=== PATIENT | male | born 1960 | race Caucasian/White ===

== ENCOUNTER 2018-09-21 16:16 | Inpatient (IN) | payer MEDICARE, MEDICAID ==
--- NOTE | 2018-09-21 17:23 | ED Physician Chart ---
ED Chief Complaint/HPI - Patient Information Date Seen:: 09/21/18 Time Seen:: 17:21 Chief Complaint:: Increased agitation History of Present Illness:: 58 yo male was brought from an assisted living to ER for evaluation of increased agitation and aggressive behavior towards nursing staff. Patient also complained erythema and pain on the medial side of bilateral distal tibial areas. Allergies:: Allergies Allergy/AdvReac Type Severity Reaction Status Date / Time No Known Allergies Allergy Verified 09/21/18 17:02 Vitals:: Vital Signs - 8 hr 09/21/18 16:30 Temp 97.5 F HR 77 RR 16 BP 137/72 O2 Sat % 97 ED Review of Systems - Review of Systems General/Constitutional: No fever Skin: No skin lesions Head: No headache Eyes: No pain ENT: No nasal drainage Neck: No neck pain Cardio Vascular: No chest pain Pulmonary: No SOB GI: No nausea, No vomiting G/U: No dysuria Psychiatric: Prior psych history Neurological: No focal symptoms ED Past Medical History - Past Medical History Past Medical History: HTN, DM, Asthma/COPD, PUD/GERD, Other (diaphragmatic hernia) Social History: Smoker, No Alcohol, No Drug Use Surgical History: None Family Medical History - Family Member Mother History Unknown: Yes ED Physical Exam - Physical Examination General/Constitutional: Awake, Alert Head: Atraumatic Eyes: PERRL, EOMI Skin: No ecchymosis ENMT: Nasal exam nl Neck: No nuchal rigidity Respiratory: No Wheeze/Rhonchi/Rales Cardio Vascular: RRR, No murmur, gallop, rubs, NL S1 S2 GI: No tenderness/rebounding/guarding Extremities: normal strength in all extremities Neuro/Psych: Alert/oriented (to self and place), No focal deficits ED Labs/Radiology/EKG Results - Lab Results Results: Laboratory Last Values WBC 12.0 Th/cmm (4.8-10.8) H 09/21/18 17:38 RBC 4.79 Mil/cmm (4.30-5.70) 09/21/18 17:38 Hgb 13.1 gm/dL (12-16) 09/21/18 17:38 Hct 40.5 % (41.0-60) L 09/21/18 17:38 MCV 84.5 fl (80-99) 09/21/18 17:38 MCH 27.4 pg (26.0-30.0) 09/21/18 17:38 MCHC Differential 32.4 pg (28.0-36.0) 09/21/18 17:38 RDW 16.4 % (11.5-20.0) 09/21/18 17:38 Plt Count 222 Th/cmm (150-400) 09/21/18 17:38 MPV 10.2 fl 09/21/18 17:38 Neutrophils % 70.6 % (40.0-80.0) 09/21/18 17:38 Lymphocytes % 18.6 % (20.0-50.0) L 09/21/18 17:38 Monocytes % 8.5 % (2.0-10.0) 09/21/18 17:38 Eosinophils % 2.3 % (0.0-5.0) 09/21/18 17:38 Basophils % 0.0 % (0.0-2.0) 09/21/18 17:38 PT 9.5 SECONDS (9.5-11.5) 09/21/18 17:38 INR 0.91 (0.5-1.4) 09/21/18 17:38 PTT (Actin FS) 25.6 SECONDS (26.0-38.0) L 09/21/18 17:38 Sodium 137 mEq/L (136-145) 09/21/18 17:38 Potassium 5.2 mEq/L (3.5-5.1) H 09/21/18 17:38 Chloride 105 mEq/L (98-107) 09/21/18 17:38 Carbon Dioxide 27.6 mEq/L (21.0-31.0) 09/21/18 17:38 Anion Gap 9.6 (7.0-16.0) 09/21/18 17:38 BUN 22 mg/dL (7-25) 09/21/18 17:38 Creatinine 0.6 mg/dL (0.7-1.3) L 09/21/18 17:38 Est GFR ( Amer) > 60.0 ml/min (>90) 09/21/18 17:38 Est GFR (Non-Af Amer) > 60.0 ml/min 09/21/18 17:38 BUN/Creatinine Ratio 36.7 09/21/18 17:38 Glucose 80 mg/dL (70-105) 09/21/18 17:38 Calcium 9.2 mg/dL (8.6-10.3) 09/21/18 17:38 Total Bilirubin 0.2 mg/dL (0.3-1.0) L 09/21/18 17:38 AST 34 U/L (13-39) 09/21/18 17:38 ALT 38 U/L (7-52) 09/21/18 17:38 Alkaline Phosphatase 130 U/L (34-104) H 09/21/18 17:38 Troponin I 0.01 ng/mL (0.01-0.05) 09/21/18 17:38 B-Natriuretic Peptide 16.6 pg/mL (5.0-100.0) 09/21/18 17:38 Total Protein 6.9 gm/dL (6.0-8.3) 09/21/18 17:38 Albumin 3.1 gm/dL (4.2-5.5) L 09/21/18 17:38 Globulin 3.8 gm/dL 09/21/18 17:38 Albumin/Globulin Ratio 0.8 (1.0-1.8) L 09/21/18 17:38 TSH 1.31 uIU/ml (0.34-5.60) 09/21/18 17:38 - Radiology Results Results: CXR: no focal consolidation - EKG Interpretations EKG Time:: 17:38 Rate & Rhythm: 66 bpm, SR [place]: -40, 240 Intervals: RBBB, LAFB Comments:: abnormal EKG ED Assessment - Assessment General Assessment: Leukocytosis Cellulitis of bilateral distal medial tibias COPD Psychosis Assessment/Comments:: CMP, CBC, Trop, BNP, TSH, PT/PTT, UA CXR and EKG Rocephin 1g IM Admit to [facility] for further evaluation and management ED Septic Shock - . Is Septic Shock (SBP<90, OR Lactate>4 mmol\L) present?: No - <6hrs of presentation: Vital Signs: Vital Signs - 8 hr 09/21/18 16:30 Temp 97.5 F HR 77 RR 16 BP 137/72 O2 Sat % 97 ED Reassessment (Disposition) - Reassessment Reassessment Condition:: Improved - Patient Disposition Discharge/Transfer:: [facility] w/in this hosp Admitting Medical Physician:: Jim Celeste Admitting Psych Physician:: Radha Can
[2018-09-21 17:54] LABS: % EOSINOPHILS 2.3 % (0.0-5.0); % LYMPHOCYTES 18.6 % (20.0-50.0); % MONOCYTES 8.5 % (2.0-10.0); % NEUTROPHILS 70.6 % (40.0-80.0); EOSINOPHILE ABSOLUTE 0.3 Th/cmm (0.1-0.4); HEMATOCRIT 40.5 % (41.0-60); HEMOGLOBIN 13.1 gm/dL (12-16); LYMPHOCYTE ABSOLUTE 2.2 Th/cmm (1.5-3.0); MEAN CELL VOLUME 84.5 fl (80-99); MEAN CORPUSCULAR HEMOGLOBIN 27.4 pg (26.0-30.0); MEAN CORPUSCULAR HGB CONC 32.4 pg (28.0-36.0); MEAN PLATELET VOLUME 10.2 fl; NEUTROPHILE ABSOLUTE 8.5 Th/cmm (1.8-8.0); PLATELET COUNT 222 Th/cmm (150-400); RED BLOOD COUNT 4.79 Mil/cmm (4.30-5.70); RED CELL DISTRIBUTION WIDTH 16.4 % (11.5-20.0)
[2018-09-21 18:00] LABS: INR 0.91 (0.5-1.4); PROTHROMBIN TIME (TEST) 9.5 SECONDS (9.5-11.5)
[2018-09-21 18:06] LABS: ALB/GLOB RATIO 0.8 (1.0-1.8); ALBUMIN 3.1 gm/dL (4.2-5.5); ALKALINE PHOSPHATASE 130 U/L (34-104); ANION GAP 9.6 (7.0-16.0); BILIRUBIN,TOTAL 0.2 mg/dL (0.3-1.0); BUN - UREA NITROGEN 22 mg/dL (7-25); CALCIUM SERUM 9.2 mg/dL (8.6-10.3); CARBON DIOXIDE 27.6 mEq/L (21.0-31.0); CHLORIDE 105 mEq/L (98-107); CREATININE - SERUM 0.6 mg/dL (0.7-1.3); GFR AFRICAN-AMERICAN > 60.0 ml/min (>90); GFR NON AFRICAN-AMERICAN > 60.0 ml/min; GLUCOSE 80 mg/dL (70-105); POTASSIUM SERUM 5.2 mEq/L (3.5-5.1); SGOT 34 U/L (13-39); SGPT/ALT 38 U/L (7-52); SODIUM SERUM 137 mEq/L (136-145); TOTAL PROTEIN,SERUM 6.9 gm/dL (6.0-8.3)
[2018-09-21 20:44] VITALS: BP 132/81
[2018-09-21 21:07] LABS: CHOLESTEROL 209 mg/dL (<200); HDL -HIGH DENSITY LIPOPROTEIN 41 mg/dL (23-92); TRIGLYCERIDES 177 mg/dL (<150)
[2018-09-21] MEDS ORDERED: Maalox 30 mL Cup PO PRN (21:07)
[2018-09-21] MEDS ORDERED: Magnesium Hydroxide (MOM) 30 mL UDC PO PRN (21:07)
[2018-09-22] MEDS: INSULIN ASPART SLIDING SCALE 100 UNITS/ML UNIT SUBQ SCH ×4 (06:53→20:05)
[2018-09-22 06:56] LABS: URINE SOURCE MIDSTREAM
[2018-09-22 07:01] LABS: URINE BILIRUBIN NEGATIVE (NEGATIVE); URINE BLOOD SMALL (NEGATIVE); URINE GLUCOSE (UA) NEGATIVE (NEGATIVE); URINE KETONE NEGATIVE (NEGATIVE); URINE LEUKOCYTE ESTERASE NEGATIVE (NEGATIVE); URINE MICROSCOPIC INDICATED? YES; URINE NITRATE NEGATIVE (NEGATIVE); URINE PROTEIN 100 mg/dL (NEGATIVE); URINE UROBILINOGEN 0.2 E.U./dL (0.2 - 1.0)
[2018-09-22 07:23] LABS: URINE CLARITY CLEAR (CLEAR); URINE COLOR YELLOW
[2018-09-22 07:44] LABS: URINE BACTERIA FEW /hpf (NONE SEEN); URINE EPITHELIAL CELLS OCCASIONAL /lpf (FEW); URINE RBC 0-2 /hpf (0-5); URINE WBC 0-2 /hpf (0-5)
--- NOTE | 2018-09-22 09:19 | History & Physical ---
ADMIT DATE: 09/22/2018 CHIEF COMPLAINT: Increase in agitation. HISTORY OF PRESENT ILLNESS: This is a 58-year-old male who was admitted from a [facility] facility to the Emergency Room [facility] due to increase in agitation and confusion and from the Emergency Room, the patient was medically cleared and transferred to psychiatric unit. REVIEW OF SYSTEMS: GENERAL: This is a 58-year-old male. No fever. No weakness. HEENT: No headache. No dizziness. EYES: No eye pain, no blurring of vision. NECK: No neck pain or nuchal rigidity. CHEST: No chest pain or palpitation. PULMONARY: No shortness of breath, no coughing. GASTROINTESTINAL: No abdominal pain, no constipation, no diarrhea. MUSCULOSKELETAL: No joint pain. No muscle pain. SOCIAL HISTORY: The patient lives in a [facility] prior to hospitalization. PSYCHIATRIC HISTORY: Includes paranoid schizophrenia. FAMILY HISTORY: Unremarkable. PAST SURGICAL HISTORY: Unremarkable. PAST MEDICAL HISTORY: Includes hypertension, diabetes, gastroesophageal reflux disease, hyperlipidemia, chronic obstructive pulmonary disease. PHYSICAL EXAMINATION: VITAL SIGNS: Temperature 97, heart rate 67, blood pressure 166/71, respirations 19, 98% on room air. GENERAL: This is a 58-year-old male that appears as stated in no acute distress. HEENT: Head is atraumatic, normocephalic. Eyes: Bilateral conjunctivae are clear. Bilateral pupils are equally round and reactive. NECK: Supple. No JVD. CARDIOVASCULAR: S1 and S2, without murmur. PULMONARY: Clear to auscultation. GASTROINTESTINAL: Soft and nontender without guarding. Positive bowel sounds. MUSCULOSKELETAL: No clubbing. No cyanosis noted. ASSESSMENT: 1. Agitation. 2. Hypertension. 3. Diabetes. 4. Gastroesophageal reflux disease. PLAN: We will admit the patient to Psychiatric Unit. We will follow up with a psychiatrist to monitor the patient's condition and behavior. We will do medication reconciliation accordingly, put the patient on p.r.n. for hypertension. Treatment plans were discussed with the patient's nurse. Treatment plans were discussed with Dr. Celeste. JOB# [id number]
--- NOTE | 2018-09-22 09:35 | Diagnostic Imaging Report ---
Portable chest x-ray Time: 1733 History: Shortness of breath Allowing for portable technique the heart size is normal. No focal pulmonary parenchymal processes. No hilar or mediastinal abnormalities. There is evidence of calcifications at the pleural margins bilaterally, asbestos exposure cannot be excluded, clinical correlation recommended as well as comparison with prior studies. Impression: No acute abnormalities.
--- NOTE | 2018-09-22 16:11 | Psychiatric Evaluation ---
DATE OF SERVICE: 09/21/2018 IDENTIFYING DATA: The patient is a 58-year-old male, resident of [facility]. Information obtained by directly interviewing the patient as well as reviewing the admission papers and they are reliable. JUSTIFICATION OF HOSPITALIZATION: The patient is admitted here on a voluntary basis in view of his agitation and psychosis. CHIEF COMPLAINT: "I am okay, leave me alone." HISTORY OF PRESENT ILLNESS: This is the first psychiatric hospitalization to the [facility] for this 58-year-old who has been diagnosed to have schizophrenia, chronic paranoid type since his mid-20s, and the patient is reported to have been getting easily agitated and has been out of control. Chart reviewed and the patient is interviewed. During the interview, review of the chart indicated that the patient has been on medication for blood pressure as well as diabetes, but psychotropic medications are not mentioned in the admission records, the patient is not able to provide much of information. PAST PSYCHIATRIC HISTORY: Details are not known. MEDICAL HISTORY AND PHYSICAL EXAMINATION: Requested to be done by Dr. Celeste. SUBSTANCE ABUSE HISTORY: None. STRENGTH AND ASSETS: The patient is motivated. MENTAL STATUS EXAMINATION: The patient is a 58-year-old, looking his stated age, superficially cooperative. Eye contact is poor. Mood is noted to be irritable. Affect is constricted. Insight and judgment at this time are noted to be very much impaired. Impulse control is noted to be poor. Coping skills are also noted to be very poor. The patient has no insight into his illness. The patient is actively responding to internal stimuli and is pacing most of the time on the unit. The patient is also reported to have been very aggressive and has been constantly arguing and fighting with the staff. The patient has been very disheveled at this time. The patient's behavior is a clear danger to self and others. The patient's short and long-term memory intact. Attention span and concentration are also noted to be poor. DIAGNOSTIC IMPRESSION: AXIS I: chronic paranoid type with acute exacerbation. AXIS II: None. AXIS III: Diabetes mellitus and hypertension. IMMEDIATE TREATMENT PLAN: The patient is going to be observed on inpatient unit, provided with supportive psychotherapy. The patient is going to be closely monitored. Encouraged to verbalize the concerns rather than to act out. Once stabilized, the patient is going to be discharged to [facility] to be followed up on an outpatient basis. [facility]# [id number]
[2018-09-23] MEDS: INSULIN ASPART SLIDING SCALE 100 UNITS/ML UNIT SUBQ SCH ×4 (06:36→20:59)
--- NOTE | 2018-09-23 12:12 | Internal Medicine Prog Note ---
Internal Medicine Subjective - Subjective Patient seen and examined:: chart reviewed Patient is:: awake, confused, other (pt admitted with increased agitation and confusion ) Per staff patient has:: no adverse event Internal Medicine Objective - Results Result Diagrams: 09/21/18 17:38 09/21/18 17:38 Recent Labs: Laboratory Last Values WBC 12.0 Th/cmm (4.8-10.8) H 09/21/18 17:38 RBC 4.79 Mil/cmm (4.30-5.70) 09/21/18 17:38 Hgb 13.1 gm/dL (12-16) 09/21/18 17:38 Hct 40.5 % (41.0-60) L 09/21/18 17:38 MCV 84.5 fl (80-99) 09/21/18 17:38 MCH 27.4 pg (26.0-30.0) 09/21/18 17:38 MCHC Differential 32.4 pg (28.0-36.0) 09/21/18 17:38 RDW 16.4 % (11.5-20.0) 09/21/18 17:38 Plt Count 222 Th/cmm (150-400) 09/21/18 17:38 MPV 10.2 fl 09/21/18 17:38 Neutrophils % 70.6 % (40.0-80.0) 09/21/18 17:38 Lymphocytes % 18.6 % (20.0-50.0) L 09/21/18 17:38 Monocytes % 8.5 % (2.0-10.0) 09/21/18 17:38 Eosinophils % 2.3 % (0.0-5.0) 09/21/18 17:38 Basophils % 0.0 % (0.0-2.0) 09/21/18 17:38 PT 9.5 SECONDS (9.5-11.5) 09/21/18 17:38 INR 0.91 (0.5-1.4) 09/21/18 17:38 PTT (Actin FS) 25.6 SECONDS (26.0-38.0) L 09/21/18 17:38 Sodium 137 mEq/L (136-145) 09/21/18 17:38 Potassium 5.2 mEq/L (3.5-5.1) H 09/21/18 17:38 Chloride 105 mEq/L (98-107) 09/21/18 17:38 Carbon Dioxide 27.6 mEq/L (21.0-31.0) 09/21/18 17:38 Anion Gap 9.6 (7.0-16.0) 09/21/18 17:38 BUN 22 mg/dL (7-25) 09/21/18 17:38 Creatinine 0.6 mg/dL (0.7-1.3) L 09/21/18 17:38 Est GFR ( Amer) > 60.0 ml/min (>90) 09/21/18 17:38 Est GFR (Non-Af Amer) > 60.0 ml/min 09/21/18 17:38 BUN/Creatinine Ratio 36.7 09/21/18 17:38 Glucose 80 mg/dL (70-105) 09/21/18 17:38 POC Glucose 98 MG/DL (70 - 105) 09/23/18 11:45 Calcium 9.2 mg/dL (8.6-10.3) 09/21/18 17:38 Total Bilirubin 0.2 mg/dL (0.3-1.0) L 09/21/18 17:38 AST 34 U/L (13-39) 09/21/18 17:38 ALT 38 U/L (7-52) 09/21/18 17:38 Alkaline Phosphatase 130 U/L (34-104) H 09/21/18 17:38 Troponin I 0.01 ng/mL (0.01-0.05) 09/21/18 17:38 B-Natriuretic Peptide 16.6 pg/mL (5.0-100.0) 09/21/18 17:38 Total Protein 6.9 gm/dL (6.0-8.3) 09/21/18 17:38 Albumin 3.1 gm/dL (4.2-5.5) L 09/21/18 17:38 Globulin 3.8 gm/dL 09/21/18 17:38 Albumin/Globulin Ratio 0.8 (1.0-1.8) L 09/21/18 17:38 Triglycerides 177 mg/dL (<150) H 09/21/18 18:45 Cholesterol 209 mg/dL (<200) H 09/21/18 18:45 LDL Cholesterol Direct 159 mg/dL (75-193) 09/21/18 18:45 HDL Cholesterol 41 mg/dL (23-92) 09/21/18 18:45 TSH 1.31 uIU/ml (0.34-5.60) 09/21/18 17:38 Urine Source MIDSTREAM 09/22/18 06:20 Urine Color YELLOW 09/22/18 06:20 Urine Clarity CLEAR (CLEAR) 09/22/18 06:20 Urine pH 6.0 (4.6 - 8.0) 09/22/18 06:20 Ur Specific [place] 1.020 (1.005-1.030) 09/22/18 06:20 Urine Protein 100 mg/dL (NEGATIVE) H 09/22/18 06:20 Urine Glucose (UA) NEGATIVE mg/dL (NEGATIVE) 09/22/18 06:20 Urine Ketones NEGATIVE mg/dL (NEGATIVE) 09/22/18 06:20 Urine Blood SMALL (NEGATIVE) H 09/22/18 06:20 Urine Nitrate NEGATIVE (NEGATIVE) 09/22/18 06:20 Urine Bilirubin NEGATIVE (NEGATIVE) 09/22/18 06:20 Urine Urobilinogen 0.2 E.U./dL (0.2 - 1.0) 09/22/18 06:20 Ur Leukocyte Esterase NEGATIVE (NEGATIVE) 09/22/18 06:20 Urine RBC 0-2 /hpf (0-5) H 09/22/18 06:20 Urine WBC 0-2 /hpf (0-5) 09/22/18 06:20 Ur Epithelial Cells OCCASIONAL /lpf (FEW) 09/22/18 06:20 Urine Bacteria FEW /hpf (NONE SEEN) 09/22/18 06:20 Urine Mucus FEW /lpf (FEW) 09/22/18 06:20 - Physical Exam Vitals and I&O: Vital Signs Temp 98 F 09/23/18 06:43 Pulse 67 09/23/18 09:15 Resp 20 09/23/18 06:43 BP 157/90 09/23/18 09:15 Pulse Ox 97 09/23/18 06:43 Intake & Output 09/22/18 09/23/18 09/23/18 18:59 06:59 18:59 Intake Total 1000 480 Balance 1000 480 Intake: Oral 1000 480 Other: # Voids 4 1 # Bowel Movements 1 Active Medications: Current Medications Acetaminophen (Tylenol) 650 mg PO Q4HR PRN PRN Reason: Mild Pain / Temp above 100 Stop: 11/20/18 21:06 Al Hydrox/Mg Hydrox/Simethicone (Maalox) 30 ml PO Q4HR PRN PRN Reason: GI DISTRESS Stop: 11/20/18 21:06 Amlodipine Besylate (Norvasc) 5 mg PO DAILY [facility] Stop: 11/21/18 08:59 Last Admin: 09/23/18 09:15 Dose: 5 mg Haloperidol (Haldol) 2 mg PO BID PRN; Protocol PRN Reason: Agitation Stop: 11/21/18 09:48 Last Admin: 09/22/18 17:10 Dose: 2 mg Insulin Aspart (Novolog Insulin Sliding Scale) 0 units SUBQ ACHS [facility]; Protocol Stop: 11/21/18 07:29 Last Admin: 09/23/18 11:49 Dose: Not Given Lorazepam (Ativan) 0.5 mg PO Q4HR PRN; Protocol PRN Reason: Agitation Stop: 10/21/18 21:06 Last Admin: 09/23/18 02:53 Dose: 0.5 mg Magnesium Hydroxide (Milk Of Magnesia) 30 ml PO HS PRN PRN Reason: Constipation Metformin HCl (Glucophage) 850 mg PO BIDWM [facility] Stop: 11/21/18 07:59 Last Admin: 09/23/18 09:15 Dose: 850 mg Olanzapine (Zyprexa) 5 mg PO DAILY [facility]; Protocol Stop: 11/22/18 08:59 Last Admin: 09/23/18 09:15 Dose: 5 mg Sucralfate (Carafate) 1 gm PO QID [facility] Stop: 11/20/18 20:59 Last Admin: 09/23/18 09:15 Dose: 1 gm Zolpidem Tartrate (Ambien) 5 mg PO HS PRN PRN Reason: Insomnia Stop: 11/20/18 21:06 Last Admin: 09/21/18 21:51 Dose: 5 mg General: demented HEENT: NC/AT Neck: Supple Lungs: CTAB Cardiovascular: RRR, Normal S1, Normal S2 Abdomen: soft Extremities: clear Neurological: alert Internal Medicine Assmt/Plan - Assessment Assessment: agitation htn dm gerd - Plan Plan: as per psych will monitor
--- NOTE | 2018-09-23 22:55 | Progress Notes ---
DATE: 09/23/2018 PSYCHIATRIC PROGRESS NOTE SUBJECTIVE: Staff was spoken to. The patient is interviewed. Mood is noted to be irritable. Affect is constricted. The patient is not making any sense. The patient has been pacing most of the time on the unit. Insight and judgment at this time are noted to be still impaired. Impulse control is noted to be poor. The patient is getting the Haldol on a p.r.n. basis and the patient has been on the olanzapine once a day. Plan to increase the dose of the medications to twice daily in view of his psychosis. PLAN: Continue the patient with the supportive therapy and followup. JOB# [id number]
[2018-09-24] MEDS: INSULIN ASPART SLIDING SCALE 100 UNITS/ML UNIT SUBQ SCH ×4 (06:40→20:16)
--- NOTE | 2018-09-24 12:53 | Internal Medicine Prog Note ---
Internal Medicine Subjective - Subjective Patient is:: awake, confused, other (pt is irritable ,talking but making no sense ) Per staff patient has:: no adverse event Internal Medicine Objective - Results Result Diagrams: 09/21/18 17:38 09/21/18 17:38 Recent Labs: Laboratory Last Values WBC 12.0 Th/cmm (4.8-10.8) H 09/21/18 17:38 RBC 4.79 Mil/cmm (4.30-5.70) 09/21/18 17:38 Hgb 13.1 gm/dL (12-16) 09/21/18 17:38 Hct 40.5 % (41.0-60) L 09/21/18 17:38 MCV 84.5 fl (80-99) 09/21/18 17:38 MCH 27.4 pg (26.0-30.0) 09/21/18 17:38 MCHC Differential 32.4 pg (28.0-36.0) 09/21/18 17:38 RDW 16.4 % (11.5-20.0) 09/21/18 17:38 Plt Count 222 Th/cmm (150-400) 09/21/18 17:38 MPV 10.2 fl 09/21/18 17:38 Neutrophils % 70.6 % (40.0-80.0) 09/21/18 17:38 Lymphocytes % 18.6 % (20.0-50.0) L 09/21/18 17:38 Monocytes % 8.5 % (2.0-10.0) 09/21/18 17:38 Eosinophils % 2.3 % (0.0-5.0) 09/21/18 17:38 Basophils % 0.0 % (0.0-2.0) 09/21/18 17:38 PT 9.5 SECONDS (9.5-11.5) 09/21/18 17:38 INR 0.91 (0.5-1.4) 09/21/18 17:38 PTT (Actin FS) 25.6 SECONDS (26.0-38.0) L 09/21/18 17:38 Sodium 137 mEq/L (136-145) 09/21/18 17:38 Potassium 5.2 mEq/L (3.5-5.1) H 09/21/18 17:38 Chloride 105 mEq/L (98-107) 09/21/18 17:38 Carbon Dioxide 27.6 mEq/L (21.0-31.0) 09/21/18 17:38 Anion Gap 9.6 (7.0-16.0) 09/21/18 17:38 BUN 22 mg/dL (7-25) 09/21/18 17:38 Creatinine 0.6 mg/dL (0.7-1.3) L 09/21/18 17:38 Est GFR ( Amer) > 60.0 ml/min (>90) 09/21/18 17:38 Est GFR (Non-Af Amer) > 60.0 ml/min 09/21/18 17:38 BUN/Creatinine Ratio 36.7 09/21/18 17:38 Glucose 80 mg/dL (70-105) 09/21/18 17:38 POC Glucose 90 MG/DL (70 - 105) 09/24/18 11:20 Calcium 9.2 mg/dL (8.6-10.3) 09/21/18 17:38 Total Bilirubin 0.2 mg/dL (0.3-1.0) L 09/21/18 17:38 AST 34 U/L (13-39) 09/21/18 17:38 ALT 38 U/L (7-52) 09/21/18 17:38 Alkaline Phosphatase 130 U/L (34-104) H 09/21/18 17:38 Troponin I 0.01 ng/mL (0.01-0.05) 09/21/18 17:38 B-Natriuretic Peptide 16.6 pg/mL (5.0-100.0) 09/21/18 17:38 Total Protein 6.9 gm/dL (6.0-8.3) 09/21/18 17:38 Albumin 3.1 gm/dL (4.2-5.5) L 09/21/18 17:38 Globulin 3.8 gm/dL 09/21/18 17:38 Albumin/Globulin Ratio 0.8 (1.0-1.8) L 09/21/18 17:38 Triglycerides 177 mg/dL (<150) H 09/21/18 18:45 Cholesterol 209 mg/dL (<200) H 09/21/18 18:45 LDL Cholesterol Direct 159 mg/dL (75-193) 09/21/18 18:45 HDL Cholesterol 41 mg/dL (23-92) 09/21/18 18:45 TSH 1.31 uIU/ml (0.34-5.60) 09/21/18 17:38 Urine Source MIDSTREAM 09/22/18 06:20 Urine Color YELLOW 09/22/18 06:20 Urine Clarity CLEAR (CLEAR) 09/22/18 06:20 Urine pH 6.0 (4.6 - 8.0) 09/22/18 06:20 Ur Specific [place] 1.020 (1.005-1.030) 09/22/18 06:20 Urine Protein 100 mg/dL (NEGATIVE) H 09/22/18 06:20 Urine Glucose (UA) NEGATIVE mg/dL (NEGATIVE) 09/22/18 06:20 Urine Ketones NEGATIVE mg/dL (NEGATIVE) 09/22/18 06:20 Urine Blood SMALL (NEGATIVE) H 09/22/18 06:20 Urine Nitrate NEGATIVE (NEGATIVE) 09/22/18 06:20 Urine Bilirubin NEGATIVE (NEGATIVE) 09/22/18 06:20 Urine Urobilinogen 0.2 E.U./dL (0.2 - 1.0) 09/22/18 06:20 Ur Leukocyte Esterase NEGATIVE (NEGATIVE) 09/22/18 06:20 Urine RBC 0-2 /hpf (0-5) H 09/22/18 06:20 Urine WBC 0-2 /hpf (0-5) 09/22/18 06:20 Ur Epithelial Cells OCCASIONAL /lpf (FEW) 09/22/18 06:20 Urine Bacteria FEW /hpf (NONE SEEN) 09/22/18 06:20 Urine Mucus FEW /lpf (FEW) 09/22/18 06:20 - Physical Exam Vitals and I&O: Vital Signs Temp 97.4 F 09/24/18 06:17 Pulse 64 09/24/18 09:07 Resp 18 09/24/18 06:17 BP 132/84 09/24/18 09:07 Pulse Ox 95 09/24/18 06:17 Intake & Output 09/23/18 09/24/18 09/24/18 18:59 06:59 18:59 Intake Total 1000 120 Balance 1000 120 Intake: Oral 1000 120 Other: # Voids 4 3 # Bowel Movements 1 0 Stool Characteristics Soft Active Medications: Current Medications Acetaminophen (Tylenol) 650 mg PO Q4HR PRN PRN Reason: Mild Pain / Temp above 100 Stop: 11/20/18 21:06 Al Hydrox/Mg Hydrox/Simethicone (Maalox) 30 ml PO Q4HR PRN PRN Reason: GI DISTRESS Stop: 11/20/18 21:06 Amlodipine Besylate (Norvasc) 5 mg PO DAILY [facility] Stop: 11/21/18 08:59 Last Admin: 09/24/18 09:07 Dose: 5 mg Haloperidol (Haldol) 2 mg PO BID PRN; Protocol PRN Reason: Agitation Stop: 11/21/18 09:48 Last Admin: 09/22/18 17:10 Dose: 2 mg Insulin Aspart (Novolog Insulin Sliding Scale) 0 units SUBQ ACHS [facility]; Protocol Stop: 11/21/18 07:29 Last Admin: 09/24/18 11:22 Dose: Not Given Lorazepam (Ativan) 0.5 mg PO Q4HR PRN; Protocol PRN Reason: Agitation Stop: 10/21/18 21:06 Last Admin: 09/23/18 02:53 Dose: 0.5 mg Magnesium Hydroxide (Milk Of Magnesia) 30 ml PO HS PRN PRN Reason: Constipation Metformin HCl (Glucophage) 850 mg PO BIDWM [facility] Stop: 11/21/18 07:59 Last Admin: 09/24/18 09:17 Dose: 850 mg Olanzapine (Zyprexa) 5 mg PO BID [facility]; Protocol Stop: 11/22/18 16:59 Last Admin: 09/24/18 09:07 Dose: 5 mg Sucralfate (Carafate) 1 gm PO QID [facility] Stop: 11/20/18 20:59 Last Admin: 09/24/18 09:07 Dose: 1 gm Zolpidem Tartrate (Ambien) 5 mg PO HS PRN PRN Reason: Insomnia Stop: 11/20/18 21:06 Last Admin: 09/23/18 21:01 Dose: 5 mg General: demented HEENT: NC/AT Neck: Supple Lungs: CTAB Cardiovascular: RRR, Normal S1, Normal S2 Abdomen: soft Extremities: clear Neurological: alert Internal Medicine Assmt/Plan - Assessment Assessment: agitation htn dm gerd - Plan Plan: as per psych will monitor
--- NOTE | 2018-09-24 16:30 | Consultation ---
DATE OF CONSULTATION: 09/24/2018 REFERRING PHYSICIAN: Radha Can MD TYPE OF CONSULTATION: Psychology. HISTORY OF PRESENT ILLNESS: The patient is a 58-year-old male. The patient is a resident of [facility]. The patient is being admitted due to acute agitation and psychosis. The following is by record review and by the patient's self-report. Upon interview, the patient stated that he wanted to be left alone and did not want to answer any questions. The patient has a history of schizophrenia, chronic paranoid type since his mid 20s. The patient denied any suicidal ideation, plan or intention at the time of the clinical interview. The staff at the patient's facility reports the patient had become easily agitated and unable to be contained, therefore transfer to the Geropsychiatric Unit here at [facility] was recommended. PAST MEDICAL HISTORY: Please see history and physical by Dr. Celeste. PAST PSYCHIATRIC HISTORY: According to record review, the patient has a history of schizophrenia, chronic paranoid type. Details are unknown regarding previous hospitalizations or for psychiatry or psychology service at his facility. SUBSTANCE ABUSE HISTORY: The patient denied any history. PSYCHOSOCIAL HISTORY: The patient did not answer questions about occupational or educational history or church affiliation. He did not answer questions about history of physical or sexual abuse or any current legal problems. The patient declined to answer questions about family members or others involved in his care. MENTAL STATUS EXAMINATION: The patient appears to be his stated age. The patient's attitude is superficially cooperative. Eye contact is poor. Speech is pressured. Mood is irritable. Affect is constricted. Thought process shows that the patient is possibly responding actively to internal stimuli. The patient acknowledged that he does experience auditory hallucinations. The patient did not answer questions about whether these were persecutory or command type. He denied suicidal ideation. The patient's behavior has been aggressive with the staff as well as argumentative and difficult to redirect. The patient's behavior appears to be a danger to self and others. Impulse control is inadequate. Concentration is poor. The patient did not participate in the memory assessment. Sensorium is alert and oriented to self and place only. The patient did not participate in the interpretation of proverbs. Insight is impaired. Judgment is impaired. DIAGNOSTIC IMPRESSION: AXIS I: History of schizophrenia, chronic paranoid type, in acute exacerbation. AXIS II: Deferred. AXIS III: Please see H and P by Dr. Celeste. TREATMENT PLAN: The patient has been seen by Dr. Can for psychiatric evaluation and further management of the patient's psychotropic medications. We will provide supportive psychotherapy to include reality orientation, differentiation and integration. We will provide de-escalation and limit setting. We will provide anger management. We will encourage the patient to demonstrate emotional and self-regulation prior to his discharge. We will encourage the patient to verbalize his concerns versus acting out. We will provide daily opportunities for the patient to contract for safety, including no self-harm and no harm to others. We will provide motivational enhancement for the patient to become compliant and stay compliant with all aspects of his care and treatment. We will provide coping strategies for phase of life issues as well as for chronic severe mental illness. Thank you, Dr. Can, for this consult and the opportunity to participate in this patient's care. JOB# [id number] MTDD
--- NOTE | 2018-09-25 00:47 | Progress Notes ---
DATE: 09/24/2018 PSYCHIATRIC PROGRESS NOTE SUBJECTIVE: Staff was spoken to. The patient is interviewed. Mood is noted to be anxious. The patient has been pacing most of the time in the unit. Insight and judgment are noted to be still impaired. Impulse control is noted to be limited. The patient has been having difficult time to cope with the stress. The patient is laughing and giggling at this time. ASSESSMENT: The patient is still psychotic. PLAN: To continue the patient with supportive therapy and follow up. [facility]# [id number]
[2018-09-25] MEDS: INSULIN ASPART SLIDING SCALE 100 UNITS/ML UNIT SUBQ SCH ×4 (07:03→20:22)
--- NOTE | 2018-09-25 17:17 | Internal Medicine Prog Note ---
Internal Medicine Subjective - Subjective Service Date: 09/25/18 Patient is:: awake, confused, other (pt is irritable ,talking but making no sense ) Per staff patient has:: no adverse event Internal Medicine Objective - Results Result Diagrams: 09/21/18 17:38 09/21/18 17:38 Recent Labs: Laboratory Last Values WBC 12.0 Th/cmm (4.8-10.8) H 09/21/18 17:38 RBC 4.79 Mil/cmm (4.30-5.70) 09/21/18 17:38 Hgb 13.1 gm/dL (12-16) 09/21/18 17:38 Hct 40.5 % (41.0-60) L 09/21/18 17:38 MCV 84.5 fl (80-99) 09/21/18 17:38 MCH 27.4 pg (26.0-30.0) 09/21/18 17:38 MCHC Differential 32.4 pg (28.0-36.0) 09/21/18 17:38 RDW 16.4 % (11.5-20.0) 09/21/18 17:38 Plt Count 222 Th/cmm (150-400) 09/21/18 17:38 MPV 10.2 fl 09/21/18 17:38 Neutrophils % 70.6 % (40.0-80.0) 09/21/18 17:38 Lymphocytes % 18.6 % (20.0-50.0) L 09/21/18 17:38 Monocytes % 8.5 % (2.0-10.0) 09/21/18 17:38 Eosinophils % 2.3 % (0.0-5.0) 09/21/18 17:38 Basophils % 0.0 % (0.0-2.0) 09/21/18 17:38 PT 9.5 SECONDS (9.5-11.5) 09/21/18 17:38 INR 0.91 (0.5-1.4) 09/21/18 17:38 PTT (Actin FS) 25.6 SECONDS (26.0-38.0) L 09/21/18 17:38 Sodium 137 mEq/L (136-145) 09/21/18 17:38 Potassium 5.2 mEq/L (3.5-5.1) H 09/21/18 17:38 Chloride 105 mEq/L (98-107) 09/21/18 17:38 Carbon Dioxide 27.6 mEq/L (21.0-31.0) 09/21/18 17:38 Anion Gap 9.6 (7.0-16.0) 09/21/18 17:38 BUN 22 mg/dL (7-25) 09/21/18 17:38 Creatinine 0.6 mg/dL (0.7-1.3) L 09/21/18 17:38 Est GFR ( Amer) > 60.0 ml/min (>90) 09/21/18 17:38 Est GFR (Non-Af Amer) > 60.0 ml/min 09/21/18 17:38 BUN/Creatinine Ratio 36.7 09/21/18 17:38 Glucose 80 mg/dL (70-105) 09/21/18 17:38 POC Glucose 87 MG/DL (70 - 105) 09/25/18 16:18 Calcium 9.2 mg/dL (8.6-10.3) 09/21/18 17:38 Total Bilirubin 0.2 mg/dL (0.3-1.0) L 09/21/18 17:38 AST 34 U/L (13-39) 09/21/18 17:38 ALT 38 U/L (7-52) 09/21/18 17:38 Alkaline Phosphatase 130 U/L (34-104) H 09/21/18 17:38 Troponin I 0.01 ng/mL (0.01-0.05) 09/21/18 17:38 B-Natriuretic Peptide 16.6 pg/mL (5.0-100.0) 09/21/18 17:38 Total Protein 6.9 gm/dL (6.0-8.3) 09/21/18 17:38 Albumin 3.1 gm/dL (4.2-5.5) L 09/21/18 17:38 Globulin 3.8 gm/dL 09/21/18 17:38 Albumin/Globulin Ratio 0.8 (1.0-1.8) L 09/21/18 17:38 Triglycerides 177 mg/dL (<150) H 09/21/18 18:45 Cholesterol 209 mg/dL (<200) H 09/21/18 18:45 LDL Cholesterol Direct 159 mg/dL (75-193) 09/21/18 18:45 HDL Cholesterol 41 mg/dL (23-92) 09/21/18 18:45 TSH 1.31 uIU/ml (0.34-5.60) 09/21/18 17:38 Urine Source MIDSTREAM 09/22/18 06:20 Urine Color YELLOW 09/22/18 06:20 Urine Clarity CLEAR (CLEAR) 09/22/18 06:20 Urine pH 6.0 (4.6 - 8.0) 09/22/18 06:20 Ur Specific [place] 1.020 (1.005-1.030) 09/22/18 06:20 Urine Protein 100 mg/dL (NEGATIVE) H 09/22/18 06:20 Urine Glucose (UA) NEGATIVE mg/dL (NEGATIVE) 09/22/18 06:20 Urine Ketones NEGATIVE mg/dL (NEGATIVE) 09/22/18 06:20 Urine Blood SMALL (NEGATIVE) H 09/22/18 06:20 Urine Nitrate NEGATIVE (NEGATIVE) 09/22/18 06:20 Urine Bilirubin NEGATIVE (NEGATIVE) 09/22/18 06:20 Urine Urobilinogen 0.2 E.U./dL (0.2 - 1.0) 09/22/18 06:20 Ur Leukocyte Esterase NEGATIVE (NEGATIVE) 09/22/18 06:20 Urine RBC 0-2 /hpf (0-5) H 09/22/18 06:20 Urine WBC 0-2 /hpf (0-5) 09/22/18 06:20 Ur Epithelial Cells OCCASIONAL /lpf (FEW) 09/22/18 06:20 Urine Bacteria FEW /hpf (NONE SEEN) 09/22/18 06:20 Urine Mucus FEW /lpf (FEW) 09/22/18 06:20 - Physical Exam Vitals and I&O: Vital Signs Temp 97.5 F 09/25/18 06:29 Pulse 58 09/25/18 09:05 Resp 19 09/25/18 10:54 BP 118/56 09/25/18 09:05 Pulse Ox 98 09/25/18 06:29 Intake & Output 09/24/18 09/25/18 09/25/18 18:59 06:59 18:59 Intake Total 1800 240 Balance 1800 240 Intake: Oral 1800 240 Other: # Voids 4 1 # Bowel Movements 0 1 Stool Characteristics Soft Soft Active Medications: Current Medications Acetaminophen (Tylenol) 650 mg PO Q4HR PRN PRN Reason: Mild Pain / Temp above 100 Stop: 11/20/18 21:06 Al Hydrox/Mg Hydrox/Simethicone (Maalox) 30 ml PO Q4HR PRN PRN Reason: GI DISTRESS Stop: 11/20/18 21:06 Amlodipine Besylate (Norvasc) 5 mg PO DAILY [facility] Stop: 11/21/18 08:59 Last Admin: 09/25/18 09:05 Dose: 5 mg Haloperidol (Haldol) 2 mg PO BID PRN; Protocol PRN Reason: Agitation Stop: 11/21/18 09:48 Last Admin: 09/22/18 17:10 Dose: 2 mg Insulin Aspart (Novolog Insulin Sliding Scale) 0 units SUBQ ACHS [facility]; Protocol Stop: 11/21/18 07:29 Last Admin: 09/25/18 16:31 Dose: Not Given Lorazepam (Ativan) 0.5 mg PO Q4HR PRN; Protocol PRN Reason: Agitation Stop: 10/21/18 21:06 Last Admin: 09/24/18 20:15 Dose: 0.5 mg Magnesium Hydroxide (Milk Of Magnesia) 30 ml PO HS PRN PRN Reason: Constipation Metformin HCl (Glucophage) 850 mg PO BIDWM [facility] Stop: 11/21/18 07:59 Last Admin: 09/25/18 09:05 Dose: 850 mg Olanzapine (Zyprexa) 5 mg PO BID [facility]; Protocol Stop: 11/22/18 16:59 Last Admin: 09/25/18 16:46 Dose: 5 mg Sucralfate (Carafate) 1 gm PO QID [facility] Stop: 11/20/18 20:59 Last Admin: 09/25/18 16:46 Dose: 1 gm Zolpidem Tartrate (Ambien) 5 mg PO HS PRN PRN Reason: Insomnia Stop: 11/20/18 21:06 Last Admin: 09/24/18 20:15 Dose: 5 mg General: demented HEENT: NC/AT Neck: Supple Lungs: CTAB Cardiovascular: RRR, Normal S1, Normal S2 Abdomen: soft Extremities: clear Neurological: alert Internal Medicine Assmt/Plan - Assessment Assessment: agitation htn dm gerd - Plan Plan: fall precautions cpm
--- NOTE | 2018-09-26 01:53 | Progress Notes ---
DATE: 09/25/2018 PSYCHIATRIC PROGRESS NOTE SUBJECTIVE: Staff was spoken to. The patient is interviewed. Mood is noted to be irritable. Affect is constricted. Insight and judgment noted to be still impaired. Impulse control is noted to be poor. Coping skills are also noted to be very poor. The patient has been having difficult time to cope with the stress. The patient is actively responding to internal stimuli. The patient has been laughing and giggling. Personal hygiene continues to be extremely poor. The patient is not making much sense. ASSESSMENT: The patient is still grossly psychotic. PLAN: To continue the patient with the supportive therapy. Encouraged the patient to verbalize the concerns rather than to act out. [facility]# [id number]
[2018-09-26] MEDS: INSULIN ASPART SLIDING SCALE 100 UNITS/ML UNIT SUBQ SCH ×4 (06:58→20:45)
--- NOTE | 2018-09-26 15:18 | Internal Medicine Prog Note ---
Internal Medicine Subjective - Subjective Patient seen and examined:: chart reviewed Patient is:: awake, confused Per staff patient has:: no adverse event Internal Medicine Objective - Results Result Diagrams: 09/21/18 17:38 09/21/18 17:38 Recent Labs: Laboratory Last Values WBC 12.0 Th/cmm (4.8-10.8) H 09/21/18 17:38 RBC 4.79 Mil/cmm (4.30-5.70) 09/21/18 17:38 Hgb 13.1 gm/dL (12-16) 09/21/18 17:38 Hct 40.5 % (41.0-60) L 09/21/18 17:38 MCV 84.5 fl (80-99) 09/21/18 17:38 MCH 27.4 pg (26.0-30.0) 09/21/18 17:38 MCHC Differential 32.4 pg (28.0-36.0) 09/21/18 17:38 RDW 16.4 % (11.5-20.0) 09/21/18 17:38 Plt Count 222 Th/cmm (150-400) 09/21/18 17:38 MPV 10.2 fl 09/21/18 17:38 Neutrophils % 70.6 % (40.0-80.0) 09/21/18 17:38 Lymphocytes % 18.6 % (20.0-50.0) L 09/21/18 17:38 Monocytes % 8.5 % (2.0-10.0) 09/21/18 17:38 Eosinophils % 2.3 % (0.0-5.0) 09/21/18 17:38 Basophils % 0.0 % (0.0-2.0) 09/21/18 17:38 PT 9.5 SECONDS (9.5-11.5) 09/21/18 17:38 INR 0.91 (0.5-1.4) 09/21/18 17:38 PTT (Actin FS) 25.6 SECONDS (26.0-38.0) L 09/21/18 17:38 Sodium 137 mEq/L (136-145) 09/21/18 17:38 Potassium 5.2 mEq/L (3.5-5.1) H 09/21/18 17:38 Chloride 105 mEq/L (98-107) 09/21/18 17:38 Carbon Dioxide 27.6 mEq/L (21.0-31.0) 09/21/18 17:38 Anion Gap 9.6 (7.0-16.0) 09/21/18 17:38 BUN 22 mg/dL (7-25) 09/21/18 17:38 Creatinine 0.6 mg/dL (0.7-1.3) L 09/21/18 17:38 Est GFR ( Amer) > 60.0 ml/min (>90) 09/21/18 17:38 Est GFR (Non-Af Amer) > 60.0 ml/min 09/21/18 17:38 BUN/Creatinine Ratio 36.7 09/21/18 17:38 Glucose 80 mg/dL (70-105) 09/21/18 17:38 POC Glucose 72 MG/DL (70 - 105) 09/26/18 12:07 Calcium 9.2 mg/dL (8.6-10.3) 09/21/18 17:38 Total Bilirubin 0.2 mg/dL (0.3-1.0) L 09/21/18 17:38 AST 34 U/L (13-39) 09/21/18 17:38 ALT 38 U/L (7-52) 09/21/18 17:38 Alkaline Phosphatase 130 U/L (34-104) H 09/21/18 17:38 Troponin I 0.01 ng/mL (0.01-0.05) 09/21/18 17:38 B-Natriuretic Peptide 16.6 pg/mL (5.0-100.0) 09/21/18 17:38 Total Protein 6.9 gm/dL (6.0-8.3) 09/21/18 17:38 Albumin 3.1 gm/dL (4.2-5.5) L 09/21/18 17:38 Globulin 3.8 gm/dL 09/21/18 17:38 Albumin/Globulin Ratio 0.8 (1.0-1.8) L 09/21/18 17:38 Triglycerides 177 mg/dL (<150) H 09/21/18 18:45 Cholesterol 209 mg/dL (<200) H 09/21/18 18:45 LDL Cholesterol Direct 159 mg/dL (75-193) 09/21/18 18:45 HDL Cholesterol 41 mg/dL (23-92) 09/21/18 18:45 TSH 1.31 uIU/ml (0.34-5.60) 09/21/18 17:38 Urine Source MIDSTREAM 09/22/18 06:20 Urine Color YELLOW 09/22/18 06:20 Urine Clarity CLEAR (CLEAR) 09/22/18 06:20 Urine pH 6.0 (4.6 - 8.0) 09/22/18 06:20 Ur Specific [place] 1.020 (1.005-1.030) 09/22/18 06:20 Urine Protein 100 mg/dL (NEGATIVE) H 09/22/18 06:20 Urine Glucose (UA) NEGATIVE mg/dL (NEGATIVE) 09/22/18 06:20 Urine Ketones NEGATIVE mg/dL (NEGATIVE) 09/22/18 06:20 Urine Blood SMALL (NEGATIVE) H 09/22/18 06:20 Urine Nitrate NEGATIVE (NEGATIVE) 09/22/18 06:20 Urine Bilirubin NEGATIVE (NEGATIVE) 09/22/18 06:20 Urine Urobilinogen 0.2 E.U./dL (0.2 - 1.0) 09/22/18 06:20 Ur Leukocyte Esterase NEGATIVE (NEGATIVE) 09/22/18 06:20 Urine RBC 0-2 /hpf (0-5) H 09/22/18 06:20 Urine WBC 0-2 /hpf (0-5) 09/22/18 06:20 Ur Epithelial Cells OCCASIONAL /lpf (FEW) 09/22/18 06:20 Urine Bacteria FEW /hpf (NONE SEEN) 09/22/18 06:20 Urine Mucus FEW /lpf (FEW) 09/22/18 06:20 - Physical Exam Vitals and I&O: Vital Signs Temp 97.3 F 09/26/18 06:30 Pulse 66 09/26/18 08:48 Resp 18 09/26/18 06:30 BP 119/62 09/26/18 08:48 Pulse Ox 96 09/26/18 06:30 Intake & Output 09/25/18 09/26/18 09/26/18 18:59 06:59 18:59 Intake Total 240 Balance 240 Intake: Oral 240 Other: # Voids 1 # Bowel Movements 0 Stool Characteristics Soft Soft Active Medications: Current Medications Acetaminophen (Tylenol) 650 mg PO Q4HR PRN PRN Reason: Mild Pain / Temp above 100 Stop: 11/20/18 21:06 Al Hydrox/Mg Hydrox/Simethicone (Maalox) 30 ml PO Q4HR PRN PRN Reason: GI DISTRESS Stop: 11/20/18 21:06 Amlodipine Besylate (Norvasc) 5 mg PO DAILY [facility] Stop: 11/21/18 08:59 Last Admin: 09/26/18 08:48 Dose: 5 mg Haloperidol (Haldol) 2 mg PO BID PRN; Protocol PRN Reason: Agitation Stop: 11/21/18 09:48 Last Admin: 09/22/18 17:10 Dose: 2 mg Insulin Aspart (Novolog Insulin Sliding Scale) 0 units SUBQ [facility]; Protocol Stop: 11/21/18 07:29 Last Admin: 09/26/18 12:50 Dose: Not Given Lorazepam (Ativan) 0.5 mg PO Q4HR PRN; Protocol PRN Reason: Agitation Stop: 10/21/18 21:06 Last Admin: 09/25/18 20:19 Dose: 0.5 mg Magnesium Hydroxide (Milk Of Magnesia) 30 ml PO HS PRN PRN Reason: Constipation Metformin HCl (Glucophage) 850 mg PO BIDWM [facility] Stop: 11/21/18 07:59 Last Admin: 09/26/18 08:48 Dose: 850 mg Olanzapine (Zyprexa) 5 mg PO BID [facility]; Protocol Stop: 11/22/18 16:59 Last Admin: 09/26/18 08:48 Dose: 5 mg Sucralfate (Carafate) 1 gm PO QID [facility] Stop: 11/20/18 20:59 Last Admin: 09/26/18 13:33 Dose: 1 gm Zolpidem Tartrate (Ambien) 5 mg PO HS PRN PRN Reason: Insomnia Stop: 11/20/18 21:06 Last Admin: 09/25/18 20:19 Dose: 5 mg General: demented HEENT: NC/AT Neck: Supple Lungs: CTAB Cardiovascular: RRR, Normal S1, Normal S2 Abdomen: soft Extremities: clear Neurological: alert Internal Medicine Assmt/Plan - Assessment Assessment: agitation htn dm gerd psychosis h/o schizophrenia, chronic paranoid type - Plan Plan: as per psych will monitor pt. continue psych meds cpm Nutritional Asmnt/Malnutr-PDOC - Dietary Evaluation Malnutrition Findings (Please click <Entered> for more info): Nutritional Asmnt/Malnutrition Start: 09/26/18 13: 57 Text: Status: Active Freq: Protocol: Document 09/26/18 13:57 [email or web address] (Rec: 09/26/18 14:12 [email or web address]) Nutritional Asmnt/Malnutrition Patient General Information Nutritional Screening Moderate Risk Diagnosis psychosis Pertinent Medical Hx/Surgical Hx paranoid schizophrenia, HTN, DM, GERD, hyperlipidemia, COPD Subjective Information Consult recieved for mult chronic wounds on lower back/ BLE. Pt was seen walking to dining room at time of visit. Food preferences taken. PO intake is 100% per EMR. Current Diet Order/ Nutrition Support [facility] soft chopped, DAX/CCHO Pertinent Medications maalox, novolog, glucophage, ambien Pertinent Labs 09/26 POC 67-72, 09/25 81-99 09/21 K 5.2, Cr 0.6, alb 3.1, triglycerides 177, cholesterol 209 Nutritional Hx/Data Height 1.7 m Height (Calculated Centimeters) 170.2 Current Weight (lbs) 68.039 kg Weight (Calculated Kilograms) 68.0 Weight (Calculated Grams) 34369.9 [place] Body Weight 148 Body Mass Index (BMI) 23.5 Weight Status Approriate GI Symptoms GI Symptoms None Last BM 09/25 Difficult in: None Food Allergies No Skin Integrity/Comment: wounds on lower back and BLE, [place] 20 Current %PO Good (75-100%) Estimated Nutritional Goals BEE in Kcals: Using Current wt Calories/Kcals/Kg 25-30 Kcals Calculated [id number] Protein: Using Current wt Protein g/k-1.2 Protein Calculated 68-81 Fluid: ml [id number] (1ml/kcal) Nutritional Problem 1. Problem Problem increased nutrient needs Etiology increased metabolic demand for wound healing Signs/Symptoms: multiple chronic wounds on lower back/BLE Malnutrition Alert Is there a minimum of two criteria No selected? Query Text:Check all the applicable criteria. A minimum of two criteria are recommended for diagnosis of either severe or non-severe malnutrition. Malnutrition Related to Morbid Obesity Malnutrition related to morbid obesity No Intervention/Recommendation Comments 1. Continue with [facility] soft chopped, DAX/CCHO diet as ordered. 2. Add Nik BID for wound healing 3. Monitor PO intake, wt, labs and skin integrity 4. F/U as low risk in 7 days Expected Outcomes/Goals Expected Outcomes/Goals 1. PO intake to meet at least 75% of nutritional needs. 2. Wt stability, skin to remain intact, labs to approach WNL.
--- NOTE | 2018-09-26 23:59 | Progress Notes ---
DATE: 09/26/2018 SUBJECTIVE: The patient has been seen and interviewed. The patient presents as guarded and somewhat argumentative. The patient is having a difficult time coping. It appears the patient is responding to internal stimuli. The patient is laughing inappropriately. The staff reports that the patient has not followed through with his hygiene or ADLs. OBJECTIVE: Mood irritable. Affect constricted. Thought process indicates psychotic process. The patient is not making much sense. The patient's answers to clinical questions were irrelevant and at times incoherent. The patient did not answer questions about experiencing auditory or visual hallucinations. The patient's behavior has been difficult to redirect. ASSESSMENT AND PLAN: The patient continues to demonstrate poor reality testing with psychotic process. We continued supportive therapy, which included reality testing and reality integration. We provided remotivation for the patient to become compliant and stay compliant with all aspects of his care and treatment. We encouraged the patient to be able to verbalize his concerns versus acting out and to demonstrate emotional and self-regulation. We will follow up in 2-3 days to continue the present treatment. JOB# [id number] [email or web address]
--- NOTE | 2018-09-27 00:56 | Progress Notes ---
DATE: 09/26/2018 PSYCHIATRIC PROGRESS NOTE SUBJECTIVE: Staff was spoken to. The patient is interviewed. Mood is noted to be irritable. Affect is constricted. The patient is pacing most of the time on the unit. The patient has paranoid delusions. Insight and judgment are noted to be still impaired. Impulse control is noted to be limited. The patient is laughing and giggling and personal hygiene continues to be extremely poor. The patient is currently on haloperidol on a p.r.n. basis. The patient has been getting the olanzapine 5 mg twice a day. PLAN: To increase the dose of the olanzapine to 10 mg twice a day and follow the patient up with the supportive therapy. JOB# [id number]
[2018-09-27] MEDS: INSULIN ASPART SLIDING SCALE 100 UNITS/ML UNIT SUBQ SCH ×4 (06:58→21:52)
--- NOTE | 2018-09-27 19:15 | Internal Medicine Prog Note ---
Internal Medicine Subjective - Subjective Service Date: 09/27/18 Patient is:: awake, confused Per staff patient has:: no adverse event Internal Medicine Objective - Results Result Diagrams: 09/21/18 17:38 09/21/18 17:38 Recent Labs: Laboratory Last Values WBC 12.0 Th/cmm (4.8-10.8) H 09/21/18 17:38 RBC 4.79 Mil/cmm (4.30-5.70) 09/21/18 17:38 Hgb 13.1 gm/dL (12-16) 09/21/18 17:38 Hct 40.5 % (41.0-60) L 09/21/18 17:38 MCV 84.5 fl (80-99) 09/21/18 17:38 MCH 27.4 pg (26.0-30.0) 09/21/18 17:38 MCHC Differential 32.4 pg (28.0-36.0) 09/21/18 17:38 RDW 16.4 % (11.5-20.0) 09/21/18 17:38 Plt Count 222 Th/cmm (150-400) 09/21/18 17:38 MPV 10.2 fl 09/21/18 17:38 Neutrophils % 70.6 % (40.0-80.0) 09/21/18 17:38 Lymphocytes % 18.6 % (20.0-50.0) L 09/21/18 17:38 Monocytes % 8.5 % (2.0-10.0) 09/21/18 17:38 Eosinophils % 2.3 % (0.0-5.0) 09/21/18 17:38 Basophils % 0.0 % (0.0-2.0) 09/21/18 17:38 PT 9.5 SECONDS (9.5-11.5) 09/21/18 17:38 INR 0.91 (0.5-1.4) 09/21/18 17:38 PTT (Actin FS) 25.6 SECONDS (26.0-38.0) L 09/21/18 17:38 Sodium 137 mEq/L (136-145) 09/21/18 17:38 Potassium 5.2 mEq/L (3.5-5.1) H 09/21/18 17:38 Chloride 105 mEq/L (98-107) 09/21/18 17:38 Carbon Dioxide 27.6 mEq/L (21.0-31.0) 09/21/18 17:38 Anion Gap 9.6 (7.0-16.0) 09/21/18 17:38 BUN 22 mg/dL (7-25) 09/21/18 17:38 Creatinine 0.6 mg/dL (0.7-1.3) L 09/21/18 17:38 Est GFR ( Amer) > 60.0 ml/min (>90) 09/21/18 17:38 Est GFR (Non-Af Amer) > 60.0 ml/min 09/21/18 17:38 BUN/Creatinine Ratio 36.7 09/21/18 17:38 Glucose 80 mg/dL (70-105) 09/21/18 17:38 POC Glucose 87 MG/DL (70 - 105) 09/27/18 11:33 Calcium 9.2 mg/dL (8.6-10.3) 09/21/18 17:38 Total Bilirubin 0.2 mg/dL (0.3-1.0) L 09/21/18 17:38 AST 34 U/L (13-39) 09/21/18 17:38 ALT 38 U/L (7-52) 09/21/18 17:38 Alkaline Phosphatase 130 U/L (34-104) H 09/21/18 17:38 Troponin I 0.01 ng/mL (0.01-0.05) 09/21/18 17:38 B-Natriuretic Peptide 16.6 pg/mL (5.0-100.0) 09/21/18 17:38 Total Protein 6.9 gm/dL (6.0-8.3) 09/21/18 17:38 Albumin 3.1 gm/dL (4.2-5.5) L 09/21/18 17:38 Globulin 3.8 gm/dL 09/21/18 17:38 Albumin/Globulin Ratio 0.8 (1.0-1.8) L 09/21/18 17:38 Triglycerides 177 mg/dL (<150) H 09/21/18 18:45 Cholesterol 209 mg/dL (<200) H 09/21/18 18:45 LDL Cholesterol Direct 159 mg/dL (75-193) 09/21/18 18:45 HDL Cholesterol 41 mg/dL (23-92) 09/21/18 18:45 TSH 1.31 uIU/ml (0.34-5.60) 09/21/18 17:38 Urine Source MIDSTREAM 09/22/18 06:20 Urine Color YELLOW 09/22/18 06:20 Urine Clarity CLEAR (CLEAR) 09/22/18 06:20 Urine pH 6.0 (4.6 - 8.0) 09/22/18 06:20 Ur Specific [place] 1.020 (1.005-1.030) 09/22/18 06:20 Urine Protein 100 mg/dL (NEGATIVE) H 09/22/18 06:20 Urine Glucose (UA) NEGATIVE mg/dL (NEGATIVE) 09/22/18 06:20 Urine Ketones NEGATIVE mg/dL (NEGATIVE) 09/22/18 06:20 Urine Blood SMALL (NEGATIVE) H 09/22/18 06:20 Urine Nitrate NEGATIVE (NEGATIVE) 09/22/18 06:20 Urine Bilirubin NEGATIVE (NEGATIVE) 09/22/18 06:20 Urine Urobilinogen 0.2 E.U./dL (0.2 - 1.0) 09/22/18 06:20 Ur Leukocyte Esterase NEGATIVE (NEGATIVE) 09/22/18 06:20 Urine RBC 0-2 /hpf (0-5) H 09/22/18 06:20 Urine WBC 0-2 /hpf (0-5) 09/22/18 06:20 Ur Epithelial Cells OCCASIONAL /lpf (FEW) 09/22/18 06:20 Urine Bacteria FEW /hpf (NONE SEEN) 09/22/18 06:20 Urine Mucus FEW /lpf (FEW) 09/22/18 06:20 - Physical Exam Vitals and I&O: Vital Signs Temp 97.1 F 09/27/18 14:00 Pulse 90 09/27/18 14:00 Resp 20 09/27/18 14:00 BP 120/63 09/27/18 14:00 Pulse Ox 96 09/27/18 14:00 Intake & Output 09/27/18 09/27/18 09/28/18 06:59 18:59 06:59 Intake Total 120 1000 Balance 120 1000 Intake: Oral 120 1000 Other: # Voids 3 3 # Bowel Movements 1 Active Medications: Current Medications Acetaminophen (Tylenol) 650 mg PO Q4HR PRN PRN Reason: Mild Pain / Temp above 100 Stop: 11/20/18 21:06 Al Hydrox/Mg Hydrox/Simethicone (Maalox) 30 ml PO Q4HR PRN PRN Reason: GI DISTRESS Stop: 11/20/18 21:06 Amlodipine Besylate (Norvasc) 5 mg PO DAILY [facility] Stop: 11/21/18 08:59 Last Admin: 09/27/18 09:13 Dose: 5 mg Divalproex Sodium (Depakote Dr) 250 mg PO BID [facility]; Protocol Stop: 11/26/18 16:59 Last Admin: 09/27/18 17:04 Dose: 250 mg Haloperidol (Haldol) 2 mg PO BID PRN; Protocol PRN Reason: Agitation Stop: 11/21/18 09:48 Last Admin: 09/22/18 17:10 Dose: 2 mg Insulin Aspart (Novolog Insulin Sliding Scale) 0 units SUBQ ACHS [facility]; Protocol Stop: 11/21/18 07:29 Last Admin: 09/27/18 16:41 Dose: Not Given Lorazepam (Ativan) 0.5 mg PO Q4HR PRN; Protocol PRN Reason: Agitation Stop: 10/21/18 21:06 Last Admin: 09/26/18 20:31 Dose: 0.5 mg Magnesium Hydroxide (Milk Of Magnesia) 30 ml PO HS PRN PRN Reason: Constipation Metformin HCl (Glucophage) 850 mg PO BIDWM [facility] Stop: 11/21/18 07:59 Last Admin: 09/27/18 17:04 Dose: 850 mg Olanzapine (Zyprexa) 10 mg PO BID [facility]; Protocol Stop: 11/25/18 16:59 Last Admin: 09/27/18 17:04 Dose: 10 mg Sucralfate (Carafate) 1 gm PO QID [facility] Stop: 11/20/18 20:59 Last Admin: 09/27/18 17:04 Dose: 1 gm Zolpidem Tartrate (Ambien) 5 mg PO HS PRN PRN Reason: Insomnia Stop: 11/20/18 21:06 Last Admin: 09/26/18 20:30 Dose: 5 mg General: demented HEENT: NC/AT Neck: Supple Lungs: CTAB Cardiovascular: RRR, Normal S1, Normal S2 Abdomen: soft Extremities: clear Neurological: alert Internal Medicine Assmt/Plan - Assessment Assessment: agitation htn dm gerd - Plan Plan: fall precautions cpm Nutritional Asmnt/Malnutr-PDOC - Dietary Evaluation Malnutrition Findings (Please click <Entered> for more info): Nutritional Asmnt/Malnutrition Start: 09/26/18 13: 57 Text: Status: Complete Freq: Protocol: Document 09/26/18 13:57 [email or web address] (Rec: 09/26/18 14:12 [email or web address]) Nutritional Asmnt/Malnutrition Patient General Information Nutritional Screening Moderate Risk Diagnosis psychosis Pertinent Medical Hx/Surgical Hx paranoid schizophrenia, HTN, DM, GERD, hyperlipidemia, COPD Subjective Information Consult recieved for mult chronic wounds on lower back/ BLE. Pt was seen walking to dining room at time of visit. Food preferences taken. PO intake is 100% per EMR. Current Diet Order/ Nutrition Support mech soft chopped, DAX/CCHO Pertinent Medications maalox, novolog, glucophage, ambien Pertinent Labs 09/26 POC 67-72, 09/25 81-99 09/21 K 5.2, Cr 0.6, alb 3.1, triglycerides 177, cholesterol 209 Nutritional Hx/Data Height 5 ft 7 in Height (Calculated Centimeters) 170.2 Current Weight (lbs) 150 lb Weight (Calculated Kilograms) 68.0 Weight (Calculated Grams) 95218.9 [place] Body Weight 148 Body Mass Index (BMI) 23.5 Weight Status Approriate GI Symptoms GI Symptoms None Last BM 09/25 Difficult in: None Food Allergies No Skin Integrity/Comment: wounds on lower back and BLE, [place] 20 Current %PO Good (75-100%) Estimated Nutritional Goals BEE in Kcals: Using Current wt Calories/Kcals/Kg 25-30 Kcals Calculated 5435-1522 Protein: Using Current wt Protein g/k-1.2 Protein Calculated 68-81 Fluid: ml 2132-3488 (1ml/kcal) Nutritional Problem 1. Problem Problem increased nutrient needs Etiology increased metabolic demand for wound healing Signs/Symptoms: multiple chronic wounds on lower back/BLE Malnutrition Alert Is there a minimum of two criteria No selected? Query Text:Check all the applicable criteria. A minimum of two criteria are recommended for diagnosis of either severe or non-severe malnutrition. Malnutrition Related to Morbid Obesity Malnutrition related to morbid obesity No Intervention/Recommendation Comments 1. Continue with [facility] soft chopped, DAX/CCHO diet as ordered. 2. Monitor PO intake, wt, labs and skin integrity 3. F/U as low risk in 7 days Expected Outcomes/Goals Expected Outcomes/Goals 1. PO intake to meet at least 75% of nutritional needs. 2. Wt stability, skin to remain intact, labs to approach WNL. Reviewed by Alessandra Reyes RD
--- NOTE | 2018-09-27 20:25 | Progress Notes ---
DATE: 09/27/2018 SUBJECTIVE: Staff was spoken to. The patient is interviewed. Mood is noted to be irritable. Affect is constricted. The patient is pacing most of the time on the unit. Insight and judgment at this time are noted to be still impaired. Impulse control is noted to be limited. The patient is screaming and yelling when I am trying to talk to him and hence along with the Zyprexa, it was decided to add the Depakote to contain the behavior and the patient is going to be followed up. JOB# [id number]
[2018-09-28] MEDS: INSULIN ASPART SLIDING SCALE 100 UNITS/ML UNIT SUBQ SCH ×4 (06:44→20:30)
--- NOTE | 2018-09-28 11:38 | Progress Notes ---
DATE: 09/28/2018 PSYCHIATRIC PROGRESS NOTE SUBJECTIVE: Staff was spoken to. The patient is interviewed. Mood is noted to be irritable. Affect is constricted. The patient is still pacing on the unit. Paranoid delusions are noted. The patient ____ also noted to be poor. The patient has been responding to internal stimuli. The patient has been not able to contract for safety. The patient is already on 20 mg of the Zyprexa and hence it is decided to see if we can give a low dose of Haldol on top of it and then follow the patient. JOB# [id number]
--- NOTE | 2018-09-28 17:00 | Internal Medicine Prog Note ---
Internal Medicine Subjective - Subjective Patient seen and examined:: chart reviewed (paranoid) Patient is:: awake, confused Per staff patient has:: no adverse event Internal Medicine Objective - Results Result Diagrams: 09/21/18 17:38 09/21/18 17:38 Recent Labs: Laboratory Last Values WBC 12.0 Th/cmm (4.8-10.8) H 09/21/18 17:38 RBC 4.79 Mil/cmm (4.30-5.70) 09/21/18 17:38 Hgb 13.1 gm/dL (12-16) 09/21/18 17:38 Hct 40.5 % (41.0-60) L 09/21/18 17:38 MCV 84.5 fl (80-99) 09/21/18 17:38 MCH 27.4 pg (26.0-30.0) 09/21/18 17:38 MCHC Differential 32.4 pg (28.0-36.0) 09/21/18 17:38 RDW 16.4 % (11.5-20.0) 09/21/18 17:38 Plt Count 222 Th/cmm (150-400) 09/21/18 17:38 MPV 10.2 fl 09/21/18 17:38 Neutrophils % 70.6 % (40.0-80.0) 09/21/18 17:38 Lymphocytes % 18.6 % (20.0-50.0) L 09/21/18 17:38 Monocytes % 8.5 % (2.0-10.0) 09/21/18 17:38 Eosinophils % 2.3 % (0.0-5.0) 09/21/18 17:38 Basophils % 0.0 % (0.0-2.0) 09/21/18 17:38 PT 9.5 SECONDS (9.5-11.5) 09/21/18 17:38 INR 0.91 (0.5-1.4) 09/21/18 17:38 PTT (Actin FS) 25.6 SECONDS (26.0-38.0) L 09/21/18 17:38 Sodium 137 mEq/L (136-145) 09/21/18 17:38 Potassium 5.2 mEq/L (3.5-5.1) H 09/21/18 17:38 Chloride 105 mEq/L (98-107) 09/21/18 17:38 Carbon Dioxide 27.6 mEq/L (21.0-31.0) 09/21/18 17:38 Anion Gap 9.6 (7.0-16.0) 09/21/18 17:38 BUN 22 mg/dL (7-25) 09/21/18 17:38 Creatinine 0.6 mg/dL (0.7-1.3) L 09/21/18 17:38 Est GFR ( Amer) > 60.0 ml/min (>90) 09/21/18 17:38 Est GFR (Non-Af Amer) > 60.0 ml/min 09/21/18 17:38 BUN/Creatinine Ratio 36.7 09/21/18 17:38 Glucose 80 mg/dL (70-105) 09/21/18 17:38 POC Glucose 87 MG/DL (70 - 105) 09/27/18 11:33 Calcium 9.2 mg/dL (8.6-10.3) 09/21/18 17:38 Total Bilirubin 0.2 mg/dL (0.3-1.0) L 09/21/18 17:38 AST 34 U/L (13-39) 09/21/18 17:38 ALT 38 U/L (7-52) 09/21/18 17:38 Alkaline Phosphatase 130 U/L (34-104) H 09/21/18 17:38 Troponin I 0.01 ng/mL (0.01-0.05) 09/21/18 17:38 B-Natriuretic Peptide 16.6 pg/mL (5.0-100.0) 09/21/18 17:38 Total Protein 6.9 gm/dL (6.0-8.3) 09/21/18 17:38 Albumin 3.1 gm/dL (4.2-5.5) L 09/21/18 17:38 Globulin 3.8 gm/dL 09/21/18 17:38 Albumin/Globulin Ratio 0.8 (1.0-1.8) L 09/21/18 17:38 Triglycerides 177 mg/dL (<150) H 09/21/18 18:45 Cholesterol 209 mg/dL (<200) H 09/21/18 18:45 LDL Cholesterol Direct 159 mg/dL (75-193) 09/21/18 18:45 HDL Cholesterol 41 mg/dL (23-92) 09/21/18 18:45 TSH 1.31 uIU/ml (0.34-5.60) 09/21/18 17:38 Urine Source MIDSTREAM 09/22/18 06:20 Urine Color YELLOW 09/22/18 06:20 Urine Clarity CLEAR (CLEAR) 09/22/18 06:20 Urine pH 6.0 (4.6 - 8.0) 09/22/18 06:20 Ur Specific [place] 1.020 (1.005-1.030) 09/22/18 06:20 Urine Protein 100 mg/dL (NEGATIVE) H 09/22/18 06:20 Urine Glucose (UA) NEGATIVE mg/dL (NEGATIVE) 09/22/18 06:20 Urine Ketones NEGATIVE mg/dL (NEGATIVE) 09/22/18 06:20 Urine Blood SMALL (NEGATIVE) H 09/22/18 06:20 Urine Nitrate NEGATIVE (NEGATIVE) 09/22/18 06:20 Urine Bilirubin NEGATIVE (NEGATIVE) 09/22/18 06:20 Urine Urobilinogen 0.2 E.U./dL (0.2 - 1.0) 09/22/18 06:20 Ur Leukocyte Esterase NEGATIVE (NEGATIVE) 09/22/18 06:20 Urine RBC 0-2 /hpf (0-5) H 09/22/18 06:20 Urine WBC 0-2 /hpf (0-5) 09/22/18 06:20 Ur Epithelial Cells OCCASIONAL /lpf (FEW) 09/22/18 06:20 Urine Bacteria FEW /hpf (NONE SEEN) 09/22/18 06:20 Urine Mucus FEW /lpf (FEW) 09/22/18 06:20 - Physical Exam Vitals and I&O: Vital Signs Temp 98.6 F 09/28/18 14:00 Pulse 72 09/28/18 14:00 Resp 20 09/28/18 14:00 BP 127/69 09/28/18 14:00 Pulse Ox 97 09/28/18 14:00 Intake & Output 09/27/18 09/28/18 09/28/18 18:59 06:59 18:59 Intake Total 1000 960 Balance 1000 960 Intake: Oral 1000 960 Other: # Voids 3 2 # Bowel Movements 1 Active Medications: Current Medications Acetaminophen (Tylenol) 650 mg PO Q4HR PRN PRN Reason: Mild Pain / Temp above 100 Stop: 11/20/18 21:06 Al Hydrox/Mg Hydrox/Simethicone (Maalox) 30 ml PO Q4HR PRN PRN Reason: GI DISTRESS Stop: 11/20/18 21:06 Amlodipine Besylate (Norvasc) 5 mg PO DAILY [facility] Stop: 11/21/18 08:59 Last Admin: 09/28/18 08:03 Dose: 5 mg Divalproex Sodium (Depakote Dr) 250 mg PO BID [facility]; Protocol Stop: 11/26/18 16:59 Last Admin: 09/28/18 08:01 Dose: 250 mg Haloperidol (Haldol) 2 mg PO BID PRN; Protocol PRN Reason: Agitation Stop: 11/21/18 09:48 Last Admin: 09/22/18 17:10 Dose: 2 mg Insulin Aspart (Novolog Insulin Sliding Scale) 0 units SUBQ ACHS [facility]; Protocol Stop: 11/21/18 07:29 Last Admin: 09/28/18 11:42 Dose: Not Given Lorazepam (Ativan) 0.5 mg PO Q4HR PRN; Protocol PRN Reason: Agitation Stop: 10/21/18 21:06 Last Admin: 09/26/18 20:31 Dose: 0.5 mg Magnesium Hydroxide (Milk Of Magnesia) 30 ml PO HS PRN PRN Reason: Constipation Metformin HCl (Glucophage) 850 mg PO BIDWM [facility] Stop: 11/21/18 07:59 Last Admin: 09/28/18 08:01 Dose: 850 mg Olanzapine (Zyprexa) 10 mg PO BID [facility]; Protocol Stop: 11/25/18 16:59 Last Admin: 09/28/18 08:02 Dose: 10 mg Sucralfate (Carafate) 1 gm PO QID [facility] Stop: 11/20/18 20:59 Last Admin: 09/28/18 12:35 Dose: 1 gm Zolpidem Tartrate (Ambien) 5 mg PO HS PRN PRN Reason: Insomnia Stop: 11/20/18 21:06 Last Admin: 09/27/18 21:25 Dose: 5 mg General: demented HEENT: NC/AT Neck: Supple Lungs: CTAB Cardiovascular: RRR, Normal S1, Normal S2 Abdomen: soft Extremities: clear Neurological: alert Internal Medicine Assmt/Plan - Assessment Assessment: agitation htn dm gerd psychosis h/o schizophrenia, chronic paranoid type - Plan Plan: as per psych will monitor pt. continue psych meds cpm Nutritional Asmnt/Malnutr-PDOC - Dietary Evaluation Malnutrition Findings (Please click <Entered> for more info): Nutritional Asmnt/Malnutrition Start: 09/26/18 13: 57 Text: Status: Complete Freq: Protocol: Document 09/26/18 13:57 [email or web address] (Rec: 09/26/18 14:12 [email or web address]) Nutritional Asmnt/Malnutrition Patient General Information Nutritional Screening Moderate Risk Diagnosis psychosis Pertinent Medical Hx/Surgical Hx paranoid schizophrenia, HTN, DM, GERD, hyperlipidemia, COPD Subjective Information Consult recieved for mult chronic wounds on lower back/ BLE. Pt was seen walking to dining room at time of visit. Food preferences taken. PO intake is 100% per EMR. Current Diet Order/ Nutrition Support mech soft chopped, DAX/CCHO Pertinent Medications maalox, novolog, glucophage, ambien Pertinent Labs 09/26 POC 67-72, 09/25 81-99 09/21 K 5.2, Cr 0.6, alb 3.1, triglycerides 177, cholesterol 209 Nutritional Hx/Data Height 1.7 m Height (Calculated Centimeters) 170.2 Current Weight (lbs) 68.039 kg Weight (Calculated Kilograms) 68.0 Weight (Calculated Grams) 55759.9 [place] Body Weight 148 Body Mass Index (BMI) 23.5 Weight Status Approriate GI Symptoms GI Symptoms None Last BM 09/25 Difficult in: None Food Allergies No Skin Integrity/Comment: wounds on lower back and BLE, [place] 20 Current %PO Good (75-100%) Estimated Nutritional Goals BEE in Kcals: Using Current wt Calories/Kcals/Kg 25-30 Kcals Calculated 7156-1883 Protein: Using Current wt Protein g/k-1.2 Protein Calculated 68-81 Fluid: ml 2917-5181 (1ml/kcal) Nutritional Problem 1. Problem Problem increased nutrient needs Etiology increased metabolic demand for wound healing Signs/Symptoms: multiple chronic wounds on lower back/BLE Malnutrition Alert Is there a minimum of two criteria No selected? Query Text:Check all the applicable criteria. A minimum of two criteria are recommended for diagnosis of either severe or non-severe malnutrition. Malnutrition Related to Morbid Obesity Malnutrition related to morbid obesity No Intervention/Recommendation Comments 1. [facility], DAX/CCHO diet as ordered. 2. Monitor PO intake, wt, labs and skin integrity 3. F/U as low risk in 7 days Expected Outcomes/Goals Expected Outcomes/Goals 1. PO intake to meet at least 75% of nutritional needs. 2. Wt stability, skin to remain intact, labs to approach WNL. Reviewed by Alessandra Reyes RD
[2018-09-29] MEDS: INSULIN ASPART SLIDING SCALE 100 UNITS/ML UNIT SUBQ SCH ×4 (07:00→21:07)
[2018-09-29] MEDS: Haloperidol Lactate 2 mg/mL Udc PO SCH (16:55)
--- NOTE | 2018-09-29 18:41 | Progress Notes ---
DATE: 09/29/2018 SUBJECTIVE: The patient was seen in the dining area. The patient appears to be paranoid, irritable, easily gets frustrated. Otherwise, the patient is in no acute distress. OBJECTIVE: VITAL SIGNS: Temperature 97.4, heart rate 65, blood pressure 139/77, respirations of 18, and saturation 97. HEENT: Head is atraumatic and normocephalic. Eyes: Bilateral conjunctivae are clear. Bilateral pupils are equally round and reactive. NECK: Supple. No JVD. CARDIOVASCULAR: S1 and S2, without murmur. PULMONARY: Clear to auscultation. GASTROINTESTINAL: Soft and nontender without guarding. Positive bowel sounds. MUSCULOSKELETAL: No clubbing. No cyanosis noted. ASSESSMENT: 1. Paranoid schizophrenia. 2. Hypertension. 3. Diabetes. 4. Gastroesophageal reflux disease. PLAN: We will keep the patient inpatient to Psychiatric Unit. We will follow up with a psychiatrist to monitor the patient's condition and behavior. Treatment plans were discussed with the patient's nurse. Treatment plans were discussed with Dr. Celeste. JOB# [id number]
--- NOTE | 2018-09-29 21:36 | Progress Notes ---
DATE: 09/28/2018 SUBJECTIVE: The patient is seen and interviewed. The patient presents as irritable and still impulsive. The staff indicates the patient has been pacing on the unit. The patient continues to verbalize paranoid delusions and is apparently responding to an inner dialogue. The patient was unable to contract for safety. The patient has been difficult to redirect on the unit. OBJECTIVE: Mood is irritable. Affect constricted. Thought process includes paranoid delusions with preoccupation with internal stimuli. The patient did not answer the question about experiencing suicidal or homicidal ideation, plan or intention. The patient's behavior has been difficult to redirect on the unit. ASSESSMENT: The patient continues to be psychotic and highly impulsive. The patient has been taking his p.o. medications. We provided remotivation for the patient to become compliant and stay compliant with all aspects of his care and treatment. We provided de-escalation and limit setting. We provided stress management to increase the patient's frustration tolerance. We provided coping strategies for chronic severe mental illness. We encouraged the patient to demonstrate emotional and self regulation and to increase the patient's impulse control. We will follow up in 2-3 days to continue the present treatment. JOB# [id number] [email or web address]
--- NOTE | 2018-09-30 01:45 | Progress Notes ---
DATE: 09/29/2018 PSYCHIATRIC PROGRESS NOTE SUBJECTIVE: Staff was spoken to. The patient is interviewed. Mood is noted to be irritable. Affect is constricted. The patient is laughing and giggling and is not making much sense. Coping skills are noted to be poor at this time. The patient is currently on the olanzapine 10 mg b.i.d. and is not responding well to it. The patient is also on 250 mg of the Depakote. The patient has been placed on the Haldol on a p.r.n. basis. I am going to be changing it to scheduled to see if the patient responds to that one, possibly the patient is going to be looked into changing the medication. ASSESSMENT: The patient is still psychotic and impulsive. PLAN: To continue the patient with the supportive therapy and followup. JOB# [id number]
[2018-09-30] MEDS: INSULIN ASPART SLIDING SCALE 100 UNITS/ML UNIT SUBQ SCH ×4 (06:53→20:17)
[2018-09-30] MEDS: Haloperidol Lactate 2 mg/mL Udc PO SCH (08:55)
--- NOTE | 2018-09-30 17:21 | Progress Notes ---
DATE: 09/30/2018 SUBJECTIVE: Staff was spoken to. The patient is interviewed. Mood is noted to be irritable. Affect is constricted. The patient has been pacing on the unit. No side effects to the medications are noted. The patient has been having difficult time to cope with the stress. The patient is still responding to internal stimuli and hence it is decided to increase the dose on the haloperidol to 5 mg and encouraged the patient to verbalize the concerns rather than to act out. The patient is also on olanzapine 10 mg twice a day since the patient has not been benefiting from it, it is decided to change the olanzapine to 10 mg at night time and then add the Haldol with an idea that we can give the Haldol Decanoate prior to the patient being discharged. ASSESSMENT: The patient is still grossly psychotic. PLAN: To continue the patient with the supportive therapy and followup. JOB# [id number]
[2018-10-01] MEDS: INSULIN ASPART SLIDING SCALE 100 UNITS/ML UNIT SUBQ SCH ×4 (06:38→21:15)
--- NOTE | 2018-10-01 11:17 | General Progress Note ---
Subjective - Review of Systems Service Date: 10/01/18 Subjective: pt is having a hard time staying in his room staff has noticed him pacing the floors constantly pt cont. to be agitated med change done by psych increased dosages yesterday 09/30/18 cont. with therapy plan Objective - Results Result Diagrams: 09/21/18 17:38 09/21/18 17:38 Recent Labs: Laboratory Last Values WBC 12.0 Th/cmm (4.8-10.8) H 09/21/18 17:38 RBC 4.79 Mil/cmm (4.30-5.70) 09/21/18 17:38 Hgb 13.1 gm/dL (12-16) 09/21/18 17:38 Hct 40.5 % (41.0-60) L 09/21/18 17:38 MCV 84.5 fl (80-99) 09/21/18 17:38 MCH 27.4 pg (26.0-30.0) 09/21/18 17:38 MCHC Differential 32.4 pg (28.0-36.0) 09/21/18 17:38 RDW 16.4 % (11.5-20.0) 09/21/18 17:38 Plt Count 222 Th/cmm (150-400) 09/21/18 17:38 MPV 10.2 fl 09/21/18 17:38 Neutrophils % 70.6 % (40.0-80.0) 09/21/18 17:38 Lymphocytes % 18.6 % (20.0-50.0) L 09/21/18 17:38 Monocytes % 8.5 % (2.0-10.0) 09/21/18 17:38 Eosinophils % 2.3 % (0.0-5.0) 09/21/18 17:38 Basophils % 0.0 % (0.0-2.0) 09/21/18 17:38 PT 9.5 SECONDS (9.5-11.5) 09/21/18 17:38 INR 0.91 (0.5-1.4) 09/21/18 17:38 PTT (Actin FS) 25.6 SECONDS (26.0-38.0) L 09/21/18 17:38 Sodium 137 mEq/L (136-145) 09/21/18 17:38 Potassium 5.2 mEq/L (3.5-5.1) H 09/21/18 17:38 Chloride 105 mEq/L (98-107) 09/21/18 17:38 Carbon Dioxide 27.6 mEq/L (21.0-31.0) 09/21/18 17:38 Anion Gap 9.6 (7.0-16.0) 09/21/18 17:38 BUN 22 mg/dL (7-25) 09/21/18 17:38 Creatinine 0.6 mg/dL (0.7-1.3) L 09/21/18 17:38 Est GFR ( Amer) > 60.0 ml/min (>90) 09/21/18 17:38 Est GFR (Non-Af Amer) > 60.0 ml/min 09/21/18 17:38 BUN/Creatinine Ratio 36.7 09/21/18 17:38 Glucose 80 mg/dL (70-105) 09/21/18 17:38 POC Glucose 119 MG/DL (70 - 105) H 09/30/18 16:51 Calcium 9.2 mg/dL (8.6-10.3) 09/21/18 17:38 Total Bilirubin 0.2 mg/dL (0.3-1.0) L 09/21/18 17:38 AST 34 U/L (13-39) 09/21/18 17:38 ALT 38 U/L (7-52) 09/21/18 17:38 Alkaline Phosphatase 130 U/L (34-104) H 09/21/18 17:38 Troponin I 0.01 ng/mL (0.01-0.05) 09/21/18 17:38 B-Natriuretic Peptide 16.6 pg/mL (5.0-100.0) 09/21/18 17:38 Total Protein 6.9 gm/dL (6.0-8.3) 09/21/18 17:38 Albumin 3.1 gm/dL (4.2-5.5) L 09/21/18 17:38 Globulin 3.8 gm/dL 09/21/18 17:38 Albumin/Globulin Ratio 0.8 (1.0-1.8) L 09/21/18 17:38 Triglycerides 177 mg/dL (<150) H 09/21/18 18:45 Cholesterol 209 mg/dL (<200) H 09/21/18 18:45 LDL Cholesterol Direct 159 mg/dL (75-193) 09/21/18 18:45 HDL Cholesterol 41 mg/dL (23-92) 09/21/18 18:45 TSH 1.31 uIU/ml (0.34-5.60) 09/21/18 17:38 Urine Source MIDSTREAM 09/22/18 06:20 Urine Color YELLOW 09/22/18 06:20 Urine Clarity CLEAR (CLEAR) 09/22/18 06:20 Urine pH 6.0 (4.6 - 8.0) 09/22/18 06:20 Ur Specific [place] 1.020 (1.005-1.030) 09/22/18 06:20 Urine Protein 100 mg/dL (NEGATIVE) H 09/22/18 06:20 Urine Glucose (UA) NEGATIVE mg/dL (NEGATIVE) 09/22/18 06:20 Urine Ketones NEGATIVE mg/dL (NEGATIVE) 09/22/18 06:20 Urine Blood SMALL (NEGATIVE) H 09/22/18 06:20 Urine Nitrate NEGATIVE (NEGATIVE) 09/22/18 06:20 Urine Bilirubin NEGATIVE (NEGATIVE) 09/22/18 06:20 Urine Urobilinogen 0.2 E.U./dL (0.2 - 1.0) 09/22/18 06:20 Ur Leukocyte Esterase NEGATIVE (NEGATIVE) 09/22/18 06:20 Urine RBC 0-2 /hpf (0-5) H 09/22/18 06:20 Urine WBC 0-2 /hpf (0-5) 09/22/18 06:20 Ur Epithelial Cells OCCASIONAL /lpf (FEW) 09/22/18 06:20 Urine Bacteria FEW /hpf (NONE SEEN) 09/22/18 06:20 Urine Mucus FEW /lpf (FEW) 09/22/18 06:20 - Physical Exam Vitals and I&O: Vital Signs Temp 98.2 F 10/01/18 06:22 Pulse 67 10/01/18 09:33 Resp 18 10/01/18 06:22 BP 128/66 10/01/18 09:33 Pulse Ox 94 10/01/18 06:22 Intake & Output 09/30/18 10/01/18 10/01/18 18:59 06:59 18:59 Intake Total 240 Balance 240 Intake: Oral 240 Other: # Voids 2 # Bowel Movements 1 Active Medications: Current Medications Acetaminophen (Tylenol) 650 mg PO Q4HR PRN PRN Reason: Mild Pain / Temp above 100 Stop: 11/20/18 21:06 Last Admin: 09/29/18 08:57 Dose: 650 mg Al Hydrox/Mg Hydrox/Simethicone (Maalox) 30 ml PO Q4HR PRN PRN Reason: GI DISTRESS Stop: 11/20/18 21:06 Amlodipine Besylate (Norvasc) 5 mg PO DAILY [facility] Stop: 11/21/18 08:59 Last Admin: 10/01/18 09:33 Dose: 5 mg Divalproex Sodium (Depakote Dr) 250 mg PO BID [facility]; Protocol Stop: 11/26/18 16:59 Last Admin: 10/01/18 09:35 Dose: 250 mg Haloperidol (Haldol) 5 mg PO BID [facility]; Protocol Stop: 11/29/18 16:59 Last Admin: 10/01/18 09:35 Dose: 5 mg Haloperidol Decanoate (Haldol Dec) 50 mg IM QMONTH [facility]; Protocol Stop: 11/30/18 10:14 Insulin Aspart (Novolog Insulin Sliding Scale) 0 units SUBQ ACHS [facility]; Protocol Stop: 11/21/18 07:29 Last Admin: 10/01/18 06:38 Dose: Not Given Lorazepam (Ativan) 0.5 mg PO Q4HR PRN; Protocol PRN Reason: Agitation Stop: 10/21/18 21:06 Last Admin: 09/26/18 20:31 Dose: 0.5 mg Magnesium Hydroxide (Milk Of Magnesia) 30 ml PO HS PRN PRN Reason: Constipation Metformin HCl (Glucophage) 850 mg PO BIDWM [facility] Stop: 11/21/18 07:59 Last Admin: 10/01/18 08:00 Dose: 850 mg Olanzapine (Zyprexa) 10 mg PO HS [facility]; Protocol Stop: 11/29/18 20:59 Last Admin: 09/30/18 20:36 Dose: 10 mg Sucralfate (Carafate) 1 gm PO QID [facility] Stop: 11/20/18 20:59 Last Admin: 10/01/18 09:35 Dose: 1 gm Zolpidem Tartrate (Ambien) 5 mg PO HS PRN PRN Reason: Insomnia Stop: 11/20/18 21:06 Last Admin: 09/30/18 20:36 Dose: 5 mg Assessment/Plan - Assessment Assessment: agitation htn dm gerd psychosis h/o schizophrenia, chronic paranoid type - Plan Plan: as per psych will monitor pt. continue psych meds cpm Nutritional Asmnt/Malnutr-PDOC - Dietary Evaluation Malnutrition Findings (Please click <Entered> for more info): Nutritional Asmnt/Malnutrition Start: 09/26/18 13: 57 Text: Status: Complete Freq: Protocol: Document 09/26/18 13:57 [email or web address] (Rec: 09/26/18 14:12 [email or web address]) Nutritional Asmnt/Malnutrition Patient General Information Nutritional Screening Moderate Risk Diagnosis psychosis Pertinent Medical Hx/Surgical Hx paranoid schizophrenia, HTN, DM, GERD, hyperlipidemia, COPD Subjective Information Consult recieved for mult chronic wounds on lower back/ BLE. Pt was seen walking to dining room at time of visit. Food preferences taken. PO intake is 100% per EMR. Current Diet Order/ [facility], DAX/CCHO Pertinent Medications maalox, novolog, glucophage, ambien Pertinent Labs 09/26 POC 67-72, 09/25 81-99 09/21 K 5.2, Cr 0.6, alb 3.1, triglycerides 177, cholesterol 209 Nutritional Hx/Data Height 1.7 m Height (Calculated Centimeters) 170.2 Current Weight (lbs) 68.039 kg Weight (Calculated Kilograms) 68.0 Weight (Calculated Grams) 49525.9 [place] Body Weight 148 Body Mass Index (BMI) 23.5 Weight Status Approriate GI Symptoms GI Symptoms None Last BM 09/25 Difficult in: None Food Allergies No Skin Integrity/Comment: wounds on lower back and BLE, [place] 20 Current %PO Good (75-100%) Estimated Nutritional Goals BEE in Kcals: Using Current wt Calories/Kcals/Kg 25-30 Kcals Calculated 1857-8447 Protein: Using Current wt Protein g/k-1.2 Protein Calculated 68-81 Fluid: ml 0128-2844 (1ml/kcal) Nutritional Problem 1. Problem Problem increased nutrient needs Etiology increased metabolic demand for wound healing Signs/Symptoms: multiple chronic wounds on lower back/BLE Malnutrition Alert Is there a minimum of two criteria No selected? Query Text:Check all the applicable criteria. A minimum of two criteria are recommended for diagnosis of either severe or non-severe malnutrition. Malnutrition Related to Morbid Obesity Malnutrition related to morbid obesity No Intervention/Recommendation Comments 1. Continue with mech soft chopped, DAX/CCHO diet as ordered. 2. Monitor PO intake, wt, labs and skin integrity 3. F/U as low risk in 7 days Expected Outcomes/Goals Expected Outcomes/Goals 1. PO intake to meet at least 75% of nutritional needs. 2. Wt stability, skin to remain intact, labs to approach WNL. Reviewed by Alessandra Reyes RD
--- NOTE | 2018-10-01 23:19 | Progress Notes ---
DATE: 10/01/2018 PSYCHIATRIC PROGRESS NOTE SUBJECTIVE: Staff was spoken to. The patient is interviewed. Mood is noted to be anxious. The patient's insight and judgment are noted to be still impaired. The patient's coping skills are noted to be poor. The patient is pacing most of the time on the unit. No side effects to the medications are noted at this time. PLAN: Since psychosis is becoming a major problem, the patient is going to be given 50 mg of Haldol Decanoate IM and the patient possibly is going to be observed with that medication. JOB# [id number]
[2018-10-02] MEDS: INSULIN ASPART SLIDING SCALE 100 UNITS/ML UNIT SUBQ SCH ×2 (06:51→12:20)
--- NOTE | 2018-10-02 13:47 | Internal Medicine Prog Note ---
Internal Medicine Subjective - Subjective Service Date: 10/02/18 Patient is:: awake, confused Per staff patient has:: no adverse event Internal Medicine Objective - Results Result Diagrams: 09/21/18 17:38 09/21/18 17:38 Recent Labs: Laboratory Last Values WBC 12.0 Th/cmm (4.8-10.8) H 09/21/18 17:38 RBC 4.79 Mil/cmm (4.30-5.70) 09/21/18 17:38 Hgb 13.1 gm/dL (12-16) 09/21/18 17:38 Hct 40.5 % (41.0-60) L 09/21/18 17:38 MCV 84.5 fl (80-99) 09/21/18 17:38 MCH 27.4 pg (26.0-30.0) 09/21/18 17:38 MCHC Differential 32.4 pg (28.0-36.0) 09/21/18 17:38 RDW 16.4 % (11.5-20.0) 09/21/18 17:38 Plt Count 222 Th/cmm (150-400) 09/21/18 17:38 MPV 10.2 fl 09/21/18 17:38 Neutrophils % 70.6 % (40.0-80.0) 09/21/18 17:38 Lymphocytes % 18.6 % (20.0-50.0) L 09/21/18 17:38 Monocytes % 8.5 % (2.0-10.0) 09/21/18 17:38 Eosinophils % 2.3 % (0.0-5.0) 09/21/18 17:38 Basophils % 0.0 % (0.0-2.0) 09/21/18 17:38 PT 9.5 SECONDS (9.5-11.5) 09/21/18 17:38 INR 0.91 (0.5-1.4) 09/21/18 17:38 PTT (Actin FS) 25.6 SECONDS (26.0-38.0) L 09/21/18 17:38 Sodium 137 mEq/L (136-145) 09/21/18 17:38 Potassium 5.2 mEq/L (3.5-5.1) H 09/21/18 17:38 Chloride 105 mEq/L (98-107) 09/21/18 17:38 Carbon Dioxide 27.6 mEq/L (21.0-31.0) 09/21/18 17:38 Anion Gap 9.6 (7.0-16.0) 09/21/18 17:38 BUN 22 mg/dL (7-25) 09/21/18 17:38 Creatinine 0.6 mg/dL (0.7-1.3) L 09/21/18 17:38 Est GFR ( Amer) > 60.0 ml/min (>90) 09/21/18 17:38 Est GFR (Non-Af Amer) > 60.0 ml/min 09/21/18 17:38 BUN/Creatinine Ratio 36.7 09/21/18 17:38 Glucose 80 mg/dL (70-105) 09/21/18 17:38 POC Glucose 119 MG/DL (70 - 105) H 09/30/18 16:51 Calcium 9.2 mg/dL (8.6-10.3) 09/21/18 17:38 Total Bilirubin 0.2 mg/dL (0.3-1.0) L 09/21/18 17:38 AST 34 U/L (13-39) 09/21/18 17:38 ALT 38 U/L (7-52) 09/21/18 17:38 Alkaline Phosphatase 130 U/L (34-104) H 09/21/18 17:38 Troponin I 0.01 ng/mL (0.01-0.05) 09/21/18 17:38 B-Natriuretic Peptide 16.6 pg/mL (5.0-100.0) 09/21/18 17:38 Total Protein 6.9 gm/dL (6.0-8.3) 09/21/18 17:38 Albumin 3.1 gm/dL (4.2-5.5) L 09/21/18 17:38 Globulin 3.8 gm/dL 09/21/18 17:38 Albumin/Globulin Ratio 0.8 (1.0-1.8) L 09/21/18 17:38 Triglycerides 177 mg/dL (<150) H 09/21/18 18:45 Cholesterol 209 mg/dL (<200) H 09/21/18 18:45 LDL Cholesterol Direct 159 mg/dL (75-193) 09/21/18 18:45 HDL Cholesterol 41 mg/dL (23-92) 09/21/18 18:45 TSH 1.31 uIU/ml (0.34-5.60) 09/21/18 17:38 Urine Source MIDSTREAM 09/22/18 06:20 Urine Color YELLOW 09/22/18 06:20 Urine Clarity CLEAR (CLEAR) 09/22/18 06:20 Urine pH 6.0 (4.6 - 8.0) 09/22/18 06:20 Ur Specific [place] 1.020 (1.005-1.030) 09/22/18 06:20 Urine Protein 100 mg/dL (NEGATIVE) H 09/22/18 06:20 Urine Glucose (UA) NEGATIVE mg/dL (NEGATIVE) 09/22/18 06:20 Urine Ketones NEGATIVE mg/dL (NEGATIVE) 09/22/18 06:20 Urine Blood SMALL (NEGATIVE) H 09/22/18 06:20 Urine Nitrate NEGATIVE (NEGATIVE) 09/22/18 06:20 Urine Bilirubin NEGATIVE (NEGATIVE) 09/22/18 06:20 Urine Urobilinogen 0.2 E.U./dL (0.2 - 1.0) 09/22/18 06:20 Ur Leukocyte Esterase NEGATIVE (NEGATIVE) 09/22/18 06:20 Urine RBC 0-2 /hpf (0-5) H 09/22/18 06:20 Urine WBC 0-2 /hpf (0-5) 09/22/18 06:20 Ur Epithelial Cells OCCASIONAL /lpf (FEW) 09/22/18 06:20 Urine Bacteria FEW /hpf (NONE SEEN) 09/22/18 06:20 Urine Mucus FEW /lpf (FEW) 09/22/18 06:20 - Physical Exam Vitals and I&O: Vital Signs Temp 97.2 F 10/02/18 13:27 Pulse 65 10/02/18 13:27 Resp 18 10/02/18 13:27 BP 123/80 10/02/18 13:27 Pulse Ox 98 10/02/18 13:27 Intake & Output 10/01/18 10/02/18 10/02/18 18:59 06:59 18:59 Intake Total 1500 240 Balance 1500 240 Intake: Oral 1500 240 Other: # Voids 4 2 # Bowel Movements 1 Active Medications: Current Medications Acetaminophen (Tylenol) 650 mg PO Q4HR PRN PRN Reason: Mild Pain / Temp above 100 Stop: 11/20/18 21:06 Last Admin: 09/29/18 08:57 Dose: 650 mg Al Hydrox/Mg Hydrox/Simethicone (Maalox) 30 ml PO Q4HR PRN PRN Reason: GI DISTRESS Stop: 11/20/18 21:06 Amlodipine Besylate (Norvasc) 5 mg PO DAILY [facility] Stop: 11/21/18 08:59 Last Admin: 10/02/18 09:42 Dose: 5 mg Divalproex Sodium (Depakote Dr) 250 mg PO BID [facility]; Protocol Stop: 11/26/18 16:59 Last Admin: 10/02/18 09:42 Dose: 250 mg Haloperidol Decanoate (Haldol Dec) 50 mg IM QMONTH [facility]; Protocol Stop: 12/01/18 08:59 Last Admin: 10/02/18 09:42 Dose: 50 mg Insulin Aspart (Novolog Insulin Sliding Scale) 0 units SUBQ ACHS [facility]; Protocol Stop: 11/21/18 07:29 Last Admin: 10/02/18 12:20 Dose: Not Given Lorazepam (Ativan) 0.5 mg PO Q4HR PRN; Protocol PRN Reason: Agitation Stop: 10/21/18 21:06 Last Admin: 09/26/18 20:31 Dose: 0.5 mg Magnesium Hydroxide (Milk Of Magnesia) 30 ml PO HS PRN PRN Reason: Constipation Metformin HCl (Glucophage) 850 mg PO BIDWM [facility] Stop: 11/21/18 07:59 Last Admin: 10/02/18 09:00 Dose: 850 mg Olanzapine (Zyprexa) 10 mg PO HS [facility]; Protocol Stop: 11/29/18 20:59 Last Admin: 10/01/18 21:15 Dose: 10 mg Sucralfate (Carafate) 1 gm PO QID [facility] Stop: 11/20/18 20:59 Last Admin: 10/02/18 09:42 Dose: 1 gm Zolpidem Tartrate (Ambien) 5 mg PO HS PRN PRN Reason: Insomnia Stop: 11/20/18 21:06 Last Admin: 10/01/18 21:15 Dose: 5 mg General: demented HEENT: NC/AT Neck: Supple Lungs: CTAB Cardiovascular: RRR, Normal S1, Normal S2 Abdomen: soft Extremities: clear Neurological: alert Internal Medicine Assmt/Plan - Assessment Assessment: agitation htn dm gerd - Plan Plan: fall precautions cpm Nutritional Asmnt/Malnutr-PDOC - Dietary Evaluation Malnutrition Findings (Please click <Entered> for more info): Nutritional Asmnt/Malnutrition Start: 09/26/18 13: 57 Text: Status: Complete Freq: Protocol: Document 09/26/18 13:57 [email or web address] (Rec: 09/26/18 14:12 [email or web address]) Nutritional Asmnt/Malnutrition Patient General Information Nutritional Screening Moderate Risk Diagnosis psychosis Pertinent Medical Hx/Surgical Hx paranoid schizophrenia, HTN, DM, GERD, hyperlipidemia, COPD Subjective Information Consult recieved for mult chronic wounds on lower back/ BLE. Pt was seen walking to dining room at time of visit. Food preferences taken. PO intake is 100% per EMR. Current Diet Order/ Nutrition Support mech soft chopped, DAX/CCHO Pertinent Medications maalox, novolog, glucophage, ambien Pertinent Labs 09/26 POC 67-72, 09/25 81-99 09/21 K 5.2, Cr 0.6, alb 3.1, triglycerides 177, cholesterol 209 Nutritional Hx/Data Height 5 ft 7 in Height (Calculated Centimeters) 170.2 Current Weight (lbs) 150 lb Weight (Calculated Kilograms) 68.0 Weight (Calculated Grams) 84356.9 [place] Body Weight 148 Body Mass Index (BMI) 23.5 Weight Status Approriate GI Symptoms GI Symptoms None Last BM 09/25 Difficult in: None Food Allergies No Skin Integrity/Comment: wounds on lower back and BLE, [place] 20 Current %PO Good (75-100%) Estimated Nutritional Goals BEE in Kcals: Using Current wt Calories/Kcals/Kg 25-30 Kcals Calculated 9947-1522 Protein: Using Current wt Protein g/k-1.2 Protein Calculated 68-81 Fluid: ml 9703-3426 (1ml/kcal) Nutritional Problem 1. Problem Problem increased nutrient needs Etiology increased metabolic demand for wound healing Signs/Symptoms: multiple chronic wounds on lower back/BLE Malnutrition Alert Is there a minimum of two criteria No selected? Query Text:Check all the applicable criteria. A minimum of two criteria are recommended for diagnosis of either severe or non-severe malnutrition. Malnutrition Related to Morbid Obesity Malnutrition related to morbid obesity No Intervention/Recommendation Comments 1. Continue with [facility] soft chopped, DAX/CCHO diet as ordered. 2. Monitor PO intake, wt, labs and skin integrity 3. F/U as low risk in 7 days Expected Outcomes/Goals Expected Outcomes/Goals 1. PO intake to meet at least 75% of nutritional needs. 2. Wt stability, skin to remain intact, labs to approach WNL. Reviewed by Alessandra Reyes RD
--- NOTE | 2018-10-02 14:05 | Progress Notes ---
DATE: 10/02/2018 PSYCHIATRIC PROGRESS NOTE PROGRESS ON THE UNIT: Staff was spoken to. The patient is interviewed. Mood is noted to be anxious. Affect is appropriate. Not suicidal or homicidal. The patient has paranoia but denies any command hallucinations. Insight and judgment are noted to be improving. Impulse control is noted to be fair. No side effects to the medications are noted. The patient has been able to participate in the groups and verbalize the concerns. ASSESSMENT: The patient is stabilizing. PLAN: To discharge the patient today for followup on an outpatient basis. JOB# [id number]
--- NOTE | 2018-10-03 02:49 | Progress Notes ---
DATE: 10/01/2018 SUBJECTIVE: The patient is seen and interviewed. The patient presents as anxious. The staff indicates the patient has continued to pace on the unit and needs consistent redirection. The patient continues to struggle with coping with his current condition. Paranoid ideation seems to be present. OBJECTIVE: Mood anxious. Affect broad and animated. Thought process indicates paranoid ideation and confusion. The patient did not answer questions about experiencing auditory or visual hallucinations. The patient's behavior is still impulsive with the staff noting that the patient continues to pace on the unit with poor redirection. ASSESSMENT AND PLAN: The patient is still psychotic. The attending psychiatrist indicates the patient is being given 50 mg of Haldol Decanoate IM and will be observed with that medication. We provided remotivation for the patient to become compliant and stay compliant with all aspects of his care and treatment. We provided limit setting and de-escalation. We encouraged the patient to verbalize his concerns. We provided positive reinforcement and motivational enhancement for the patient to follow through with staff direction. We provided a simple anxiety reduction skill. Poor follow through and rehearsal by the patient is noted. We will follow up in 2-3 days to continue the present treatment. JOB# [id number] [email or web address]
== END 2018-10-02 15:55 | DRG 885 ==
LOC: ER 16:16 → GERO2 18:39 → GERO 18:56
PROVIDERS: ADMIT Psychiatry & Neurology Psychiatry; ATTEND Psychiatry & Neurology Psychiatry
DX: F20.0 Paranoid schizophrenia (principal); L03.116 Cellulitis of left lower limb; L03.115 Cellulitis of right lower limb; I10 Essential (primary) hypertension; E11.9 Type 2 diabetes mellitus without complications; K21.9 Gastro-esophageal reflux disease without esophagitis; J44.9 Chronic obstructive pulmonary disease, unspecified; F17.210 Nicotine dependence, cigarettes, uncomplicated; F29 Unspecified psychosis not due to a substance or known physiological condition
CPT/HCPCS: 36415-UA; 71045-TC; 80053-TC; 80061-TC; 81001-TC; 82948-90; 83036-90; 83880-TC; 84443-TC; 84484-TC; 85025-TC; 85610-TC; 90899; G0410; J0696; J1631; J1815; J2001; J7051; Z7610